=== PATIENT | male | born 1960 | race Caucasian/White ===

== ENCOUNTER 2018-11-15 18:55 | Inpatient (IN) | payer OTHER ==
[~2018-11-15] VITALS: Ht 175.3 cm; Wt 75.6 kg
--- OUTSIDE RECORDS SUMMARY | 2018-11-15 18:58 | XMS REPORT | Clinical Summary ---
Author Author [facility] Organization [place] [facility] Address Unknown Phone Unavailable Care Team Providers Care Steel Fixer Name Role Phone Marlin Harden PRODUCT PICKER PCP Allergies No Known Allergies Medications End Date Status Medication Sig Dispensed Refills Start Date Active metFORMIN (GLUCOPHAGE) Take 500 mg 0 500 mg tablet by mouth daily with breakfast. 09/11/2018 Discontinued simvastatin (ZOCOR) 40 MG Take 40 mg by 0 tablet mouth nightly. 09/11/2018 Discontinued potassium chloride Take 20 mEq 0 (K-DUR,KLOR-CON) 10 MEQ by mouth CR tablet daily. 09/11/2018 Discontinued furosemide (LASIX) 20 mg Take 40 mg by 0 tablet mouth daily. 10/11/2018 carvedilol (COREG) 6.25 Take 1 tablet 60 tablet 0 201 MG tablet (6.25 mg 9 total) by mouth 2 (two) times a day with meals for 30 days. 10/11/2018 atorvastatin (LIPITOR) 40 Take 1 tablet 30 tablet 0 201 MG tablet (40 mg total) 9 by mouth nightly for 30 days. 10/11/2018 captopril (CAPOTEN) 25 MG Take 1 tablet 60 tablet 0 tablet (25 mg total) 9 by mouth 2 (two) times a day for 30 days. 10/11/2018 hydrALAZINE (APRESOLINE) Take 1 tablet 60 tablet 0 10 MG tablet (10 mg total) 9 by mouth 2 (two) times a day for 30 days. 10/11/2018 famotidine (PEPCID) 20 MG Take 1 tablet 60 tablet 0 tablet (20 mg total) 9 by mouth 2 (two) times a day for 30 days. 10/12/2018 torsemide (DEMADEX) 20 MG Take 2 60 tablet 0 tablet tablets (40 9 mg total) by mouth daily for 30 days. 10/12/2018 aspirin (ECOTRIN) 81 MG Take 1 tablet 30 tablet 0 enteric coated tablet (81 mg total) 9 by mouth daily for 30 days. 10/11/2018 potassium chloride Take 2 60 tablet 0 (K-DUR,KLOR-CON) 10 MEQ tablets (20 9 CR tablet mEq total) by mouth daily for 30 days. 10/12/2018 spironolactone Take 1 tablet 30 tablet 0 (ALDACTONE) 25 MG tablet (25 mg total) 9 by mouth daily for 30 days. 10/11/2018 isosorbide dinitrate Take 1 tablet 60 tablet 0 (ISORDIL) 10 MG tablet (10 mg total) 9 by mouth 2 (two) times a day for 30 days. Active Problems Problem Noted Date Stage 3 chronic kidney disease 09/02/2018 ACS (acute coronary syndrome) 09/02/2018 Acute on chronic combined systolic and diastolic congestive heart failure 08/31/2018 Congestive heart failure 08/30/2018 Diabetes mellitus Shortness of breath Encounters Care Team Description Date Type Specialty Wai Hernandez MD Ischemic cardiomyopathy 10/24/2018 Hospital Procedural Cardiology Encounter Wai Hernandez MD Ischemic cardiomyopathy (Primary Dx) 10/23/2018 Transcribe Procedural Cardiology Orders Sushant Boone, PharmD 09/12/2018 Patient Quality Outreach Stu Caban MD Left heart cath w lv gram cors [[id number] (CPT)] 09/02/2018 Surgery Procedural Cardiology Leighton Duval MD Joglekar, Swati, MD Li, MD Kenyon Fofana, Cornell Paulino, Congestive heart failure, unspecified HF chronicity, unspecified heart failure type (HCC) (Primary Dx); Hypervolemia, unspecified hypervolemia type; Coronary artery disease involving [place] heart without angina pectoris, unspecified vessel or lesion type; Shortness of breath 08/30/2018 [facility] - Encounter 09/11/2018 after 11/14/2017 Social History Date Tobacco Use Types Packs/Day Years Used Current Every Day Smoker 0.5 Smokeless Tobacco: Never Used Tobacco Cessation: Ready to Quit: Yes; Counseling Given: Yes Alcohol Use Drinks/Week oz/Week Comments No Alcohol Habits Answer Date Recorded How often do you have a drink containing alcohol? Never 08/30/2018 How many drinks containing alcohol do you have on Not asked a typical day when you are drinking? How often do you have six or more drinks on one Not asked occasion? Sex Assigned at Date Recorded Not on file Industry Job Start Date Occupation Not on file Not on file Not on file Travel End Travel History Travel Start No recent travel history available. Last Filed Vital Signs Time Taken Vital Sign Reading 09/11/2018 7:46 AM CARRIAGE FEEDER Blood Pressure 114/70 09/11/2018 7:46 AM CARRIAGE FE[employer]ER Pulse 66 09/11/2018 7:46 AM CARRIAGE FE[employer] Temperature 36.1 C (96.9 F) 09/11/2018 7:46 AM [employer]RIAGE FE[employer]ER Respiratory Rate 18 09/11/2018 7:46 AM CARRIAGE FEEDER Oxygen Saturation 100% - Inhaled Oxygen - Concentration 09/10/2018 6:40 AM CARRIAGE FE[employer]ER Weight 62.7 kg (138 lb 4.8 oz) 08/31/2018 5:01 AM [employer]RIAGE FEEDER Height 175.3 cm (5' 9") 09/10/2018 6:40 AM CARRIAGE FEEDER Body Mass Index 20.42 Plan of Treatment Health Maintenance Due Date Last Done Comments DIABETIC RETINAL EYE EXAM 1960 DIABETIC FOOT EXAM 1968 COLON CANCER SCREENING 2008 SHINGLES VACCINES (#1) 2008 INFLUENZA VACCINE 03/27/2018 Implants Device Identifier Shelf Expiration Date Model / Serial / Lot Implanted Type Area Manufactur er 04/26/2020 [id number] / / [id number] Device Vasclr Clsr Baln Cath 10ml Cardiovasc N/A: N/A ACCESS Lkng Syr 5fr Bejarano Mynxgrip - ular CLOSURE [id number] [employer]plants [employer] Implanted: 09/02/2018 (Quantity not on file) Procedures Comments Procedure Name Priority Date/Time Associated Diagnosis CARDIAC MRI FUNCTION Routine 10/24/2018 Ischemic cardiomyopathy VIABILITY CHF EVALUATION 12:07 PM [employer]RIAGE FEEDER POC PANEL Routine 10/24/2018 10:19 AM CARRIAGE FE[employer]ER ESTIMATED GFR Routine 10/24/2018 10:19 AM CARRIAGE FE[employer]ER ESTIMATED GFR Routine 09/11/2018 5:43 AM [employer]RIAGE FE[employer]ER BASIC METABOLIC PANEL Routine 09/11/2018 5:43 AM [employer]AGE FE[employer]ER POC GLUCOSE Routine 09/11/2018 5:33 AM [employer]AGE [employer]ER POC GLUCOSE Routine 09/10/2018 7:53 PM [employer]AGE [employer]ER POC GLUCOSE Routine 09/10/2018 4:17 PM [employer]AGE FE[employer]ER POC GLUCOSE Routine 09/10/2018 11:16 AM [employer]AGE [employer]ER POC GLUCOSE Routine 09/10/2018 6:28 AM [employer]AGE FE[employer]ER POC GLUCOSE Routine 09/09/2018 8:06 PM [employer]AGE [employer]ER POC GLUCOSE Routine 09/09/2018 4:08 PM [employer]AGE FE[employer]ER POC GLUCOSE Routine 09/09/2018 10:58 AM CAR[employer]AGE FE[employer]ER ESTIMATED GFR Routine 09/09/2018 6:51 AM CARRIAGE FEEDER BASIC METABOLIC PANEL Routine 09/09/2018 6:51 AM CAR[employer]AGE FEEDER POC GLUCOSE Routine 09/09/2018 6:36 AM CARRIAGE FEEDER POC GLUCOSE Routine 09/08/2018 8:43 PM CARRIAGE FEEDER POC GLUCOSE Routine 09/08/2018 4:49 PM CARRIAGE FEEDER POC GLUCOSE Routine 09/08/2018 11:37 AM CARRIAGE FEEDER POC GLUCOSE Routine 09/08/2018 6:15 AM CARRIAGE FEEDER POC GLUCOSE Routine 09/07/2018 8:36 PM CARRIAGE FEEDER POC GLUCOSE Routine 09/07/2018 4:07 PM CARRIAGE FEEDER POC GLUCOSE Routine 09/07/2018 11:17 AM CARRIAGE FEEDER POC GLUCOSE Routine 09/07/2018 6:23 AM CARRIAGE FEEDER POC GLUCOSE Routine 09/06/2018 8:16 PM CARRIAGE FEEDER POC GLUCOSE Routine 09/06/2018 4:15 PM CARRIAGE FEEDER ESTIMATED GFR Routine 09/06/2018 2:02 PM [employer]RIAGE FE[employer]ER BASIC METABOLIC PANEL Routine 09/06/2018 2:02 PM CARRIAGE FEEDER POC GLUCOSE Routine 09/06/2018 11:23 AM CARRIAGE FEEDER POC GLUCOSE Routine 09/06/2018 6:42 AM CARRIAGE FEEDER XR CHEST 1 VW PORTABLE STAT 09/06/2018 1:08 AM CARRIAGE FEEDER POC GLUCOSE Routine 09/05/2018 8:41 PM CAR[employer]AGE FE[employer]ER POC GLUCOSE Routine 09/05/2018 4:36 PM CARRIAGE FEEDER POC GLUCOSE Routine 09/05/2018 11:54 AM CARRIAGE FE[employer]ER POC GLUCOSE Routine 09/05/2018 7:50 AM CARRIAGE FEEDER HC COMPLETE BLD COUNT Timed 09/05/2018 W/AUTO DIFF 7:10 AM CARRIAGE FEEDER IONIZED CALCIUM Routine 09/05/2018 7:10 AM CARRIAGE FE[employer]ER XR CHEST 1 VW PORTABLE Routine 09/05/2018 5:47 AM CARRIAGE FEEDER ESTIMATED GFR Timed 09/05/2018 4:29 AM CAR[employer]AGE FE[employer]ER PHOSPHORUS LEVEL Timed 09/05/2018 4:29 AM CARRIAGE FEEDER MAGNESIUM LEVEL Timed 09/05/2018 4:29 AM CARRIAGE FEEDER BASIC METABOLIC PANEL Timed 09/05/2018 4:29 AM CARRIAGE FEEDER POC GLUCOSE Routine 09/04/2018 9:52 PM CARRIAGE FEEDER POC GLUCOSE Routine 09/04/2018 4:02 PM CARRIAGE FEEDER SPIROMETRY Routine 09/04/2018 Coronary artery disease 3:46 PM CARRIAGE FEEDER involving [place] heart without angina pectoris, unspecified vessel or lesion type Shortness of breath US CAROTID DUPLEX STAT 09/04/2018 BILATERAL 12:20 PM CARRIAGE FEEDER POC GLUCOSE Routine 09/04/2018 12:20 PM CARRIAGE FEEDER POC GLUCOSE Routine 09/04/2018 8:10 AM CARRIAGE FEEDER XR CHEST 1 VW PORTABLE STAT 09/04/2018 8:00 AM CARRIAGE FEEDER ESTIMATED GFR Routine 09/04/2018 4:58 AM CARRIAGE FEEDER PHOSPHORUS LEVEL Routine 09/04/2018 4:58 AM CARRIAGE FEEDER MAGNESIUM LEVEL Routine 09/04/2018 4:58 AM CARRIAGE FEEDER HC COMPLETE BLD COUNT Routine 09/04/2018 W/AUTO DIFF 4:58 AM CARRIAGE FEEDER BASIC METABOLIC PANEL Routine 09/04/2018 4:58 AM CARRIAGE FEEDER IONIZED CALCIUM Routine 09/04/2018 4:58 AM CARRIAGE FEEDER POC GLUCOSE Routine 09/03/2018 9:58 PM CARRIAGE FEEDER POC GLUCOSE Routine 09/03/2018 5:00 PM [employer]RIAGE FE[employer]ER HEMOGLOBIN A1C Routine 09/03/2018 3:00 PM CARRIAGE FEEDER POC GLUCOSE Routine 09/03/2018 12:44 PM CARRIAGE FEEDER ACTIVATED CLOTTING TIME Routine 09/03/2018 12:31 PM CARRIAGE FEEDER POC GLUCOSE Routine 09/03/2018 8:25 AM CARRIAGE FEEDER ESTIMATED GFR Routine 09/03/2018 7:58 AM CARRIAGE FEEDER URINE PROTEIN/CREATININE Routine 09/03/2018 RATIO, RANDOM 7:58 AM CARRIAGE FEEDER ESTIMATED GFR Timed 09/03/2018 5:12 AM CARRIAGE FEEDER PHOSPHORUS LEVEL Timed 09/03/2018 5:12 AM CARRIAGE FEEDER MAGNESIUM LEVEL Timed 09/03/2018 5:12 AM CARRIAGE FEEDER HC COMPLETE BLD COUNT Timed 09/03/2018 W/AUTO DIFF 5:12 AM CARRIAGE FEEDER BASIC METABOLIC PANEL Timed 09/03/2018 5:12 AM CARRIAGE FEEDER MAGNESIUM LEVEL Routine 09/03/2018 5:12 AM CARRIAGE FEEDER URIC ACID LEVEL Routine 09/03/2018 5:12 AM CARRIAGE FEEDER VITAMIN D 25 HYDROXY Routine 09/03/2018 LEVEL 5:12 AM CARRIAGE FEEDER PARATHYROID HORMONE Routine 09/03/2018 5:12 AM CARRIAGE FEEDER IONIZED CALCIUM Routine 09/03/2018 5:12 AM CARRIAGE FEEDER B NATRIURETIC PEPTIDE Routine 09/03/2018 5:12 AM CARRIAGE FEEDER ECG 12-LEAD STAT 09/03/2018 1:13 AM CARRIAGE FEEDER ESTIMATED GFR STAT 09/03/2018 12:52 AM CARRIAGE FEEDER PHOSPHORUS LEVEL STAT 09/03/2018 12:52 AM CARRIAGE FEEDER MAGNESIUM LEVEL STAT 09/03/2018 12:52 AM CARRIAGE FEEDER BASIC METABOLIC PANEL STAT 09/03/2018 12:52 AM CARRIAGE FEEDER US RENAL Routine 09/02/2018 10:53 PM CARRIAGE FEEDER URINALYSIS SCREEN AND Routine 09/02/2018 MICROSCOPY, WITH REFLEX 10:00 PM CARRIAGE FEEDER TO CULTURE URINE CULTURE Routine 09/02/2018 10:00 PM CARRIAGE FEEDER POC GLUCOSE Routine 09/02/2018 8:38 PM CARRIAGE FEEDER ESTIMATED GFR STAT 09/02/2018 6:10 PM CARRIAGE FEEDER BASIC METABOLIC PANEL STAT 09/02/2018 6:10 PM CARRIAGE FEEDER POC GLUCOSE Routine 09/02/2018 5:21 PM CARRIAGE FEEDER POC GLUCOSE Routine 09/02/2018 2:29 PM CARRIAGE FEEDER CV LEFT HEART CATH LV Routine 09/02/2018 GRAM WITH CORS 10:18 AM CARRIAGE FEEDER POC GLUCOSE Routine 09/02/2018 6:19 AM CARRIAGE FEEDER POC GLUCOSE Routine 09/01/2018 8:54 PM CARRIAGE FEEDER POC GLUCOSE Routine 09/01/2018 4:30 PM CARRIAGE FEEDER POC GLUCOSE Routine 09/01/2018 12:03 PM CARRIAGE FEEDER ESTIMATED GFR Routine 09/01/2018 6:20 AM CARRIAGE FEEDER MAGNESIUM LEVEL Routine 09/01/2018 6:20 AM CARRIAGE FEEDER BASIC METABOLIC PANEL Routine 09/01/2018 6:20 AM CARRIAGE FEEDER POC GLUCOSE Routine 09/01/2018 6:13 AM CARRIAGE FEEDER POC GLUCOSE Routine 08/31/2018 8:52 PM CARRIAGE FEEDER POC GLUCOSE Routine 08/31/2018 3:50 PM CARRIAGE FEEDER ECHOCARDIOGRAM 2D Routine 08/31/2018 COMPLETE W MMODE SPECTRAL 10:52 AM CARRIAGE FEEDER COLOR DOPPLER (36669) POC GLUCOSE Routine 08/31/2018 10:52 AM CARRIAGE FEEDER MAGNESIUM LEVEL Routine 08/31/2018 10:16 AM CARRIAGE FEEDER TROPONIN Timed 08/31/2018 10:16 AM CARRIAGE FEEDER ECG 12-LEAD Routine 08/31/2018 8:30 AM CARRIAGE FEEDER POC GLUCOSE Routine 08/31/2018 6:03 AM CARRIAGE FEEDER TROPONIN Routine 08/31/2018 5:40 AM CARRIAGE FEEDER ESTIMATED GFR Routine 08/31/2018 5:40 AM CARRIAGE FEEDER LIPID PANEL Routine 08/31/2018 5:40 AM CARRIAGE FEEDER BASIC METABOLIC PANEL Routine 08/31/2018 5:40 AM CARRIAGE FEEDER PROTHROMBIN TIME WITH INR Routine 08/31/2018 5:40 AM CARRIAGE FEEDER HC COMPLETE BLD COUNT Routine 08/31/2018 W/AUTO DIFF 5:40 AM CARRIAGE FEEDER ECG 12-LEAD Routine 08/31/2018 5:02 AM CARRIAGE FEEDER XR CHEST 1 VW STAT 08/30/2018 10:45 PM CARRIAGE FEEDER TROPONIN Timed 08/30/2018 10:38 PM CARRIAGE FEEDER ECG ED PRELIMINARY Routine 08/30/2018 INTERPRETATION 9:04 PM CARRIAGE FEEDER ESTIMATED GFR STAT 08/30/2018 7:35 PM CARRIAGE FEEDER B NATRIURETIC PEPTIDE STAT 08/30/2018 7:35 PM CARRIAGE FEEDER TROPONIN STAT 08/30/2018 7:35 PM CARRIAGE FEEDER COMPREHENSIVE METABOLIC STAT 08/30/2018 PANEL 7:35 PM CARRIAGE FEEDER HC COMPLETE BLD COUNT STAT 08/30/2018 W/AUTO DIFF 7:35 PM CARRIAGE FEEDER ECG 12-LEAD STAT 08/30/2018 6:35 PM CARRIAGE FEEDER after 11/14/2017 Results * Cardiac mri function viability chf evaluation (10/24/2018 12:07 PM CARRIAGE FEEDER) Narrative Performed At [facility] CMR Report Name:DHRUV ENCINAS :1960 Scan Date: 2018-10-24 10:34:19 Electronically signed by Randal Goodman M.D. 15:27:53 VITALS HEIGHT/WEIGHT --------- HEIGHT:69.00 in 175.26 cm WEIGHT:180.01 lbs 81.65 kgs BSA/BP --------- BSA:1.98 m^2 HEART RATE/RHYTHM --------- HEART RHYTHM:Sinus Rhythm FINAL IMPRESSION: A. ISCHEMIC DILATED CARDIOMYOPATHY WITH SEVERE BIVENTRICULAR SYSTOLIC DYSFUNCTION (LVEF 25%, RVEF 23%). B. ISCHEMIC SUBENDOCARDIAL SCAR (<50% OF WALL THICKNESS)PATTERN PRIMARILY IN THE RCA AND LAD TERRITORIES. SCAR BURDEN ESTIMATED 14% OF LV MASS. ALL EPICARDIAL CORONARY TERRITORIES ARE CONSIDERED PREDOMINANTLY VIABLE. C. SMALL PERICARDIAL EFFUSION WITHOUT EVIDENCE OF INCREASED INTRAPERICARDIAL PRESSURE. D, MILD TO MODERATE MITRAL REGURGITATION AND MILD TRICUSPID REGURGITATION. SUMMARY LEFT VENTRICLE: Quantitative LVEF 25%. LV wall thickness is normal. There is focal wall thinning of the septal, inferior, and inferolateral segments. LV cavity is mildly enlarged. LV systolic function is regionally impaired. There is no LV mass/thrombus. VIABILITY: LV infarct/scar size is 14%.There is subendocardial scar (<50% of wall thickness) in the inferior, septal, and inferolateral segments consistent with myocardial infarct in the LAD and RCA territories. All epicardial coronary artery territories are considered predominantly viable. RIGHT VENTRICLE: Quantitative RVEF 23%. RV wall thickness is normal. RV is mildly enlarged. RV systolic function is severely decreased globally. There is no RV mass/thrombus. LV/RV SEPTUM: The ventricular septum is intact. LEFT ATRIUM: LA is severely enlarged. There is no LA mass/thrombus. RIGHT ATRIUM: RA is severely enlarged. There is no RA mass/thrombus. PERICARDIUM: Pericardium is normal. There is a small pericardial effusion. There are no signs of increased intrapericardial pressures. PLEURAL EFFUSION: There is a small right pleural effusion. There is a small left pleural effusion. AORTIC VALVE: Aortic valve is trileaflet. There is no aortic regurgitation. There is no aortic stenosis. MITRAL VALVE: Mitral valve leaflets are normal. There is mild-moderate mitral regurgitation. Mitral regurgitant volume 25ml. Mitral regurgitant fraction 34%. There is no mitral stenosis. TRICUSPID VALVE: The tricuspid valve annulus measures 4.5cm. Tricuspid valve leaflets are normal. There is mild tricuspid regurgitation. Tricuspid regurgitant volume 14ml. Tricuspid regurgitant fraction 23%. There is no tricuspid stenosis. PULMONIC VALVE: Pulmonic valve leaflets are normal. AORTIC ROOT: The aortic root is normal. CHEST: The thoracic aorta is normal in caliber with no evidence of stenosis, aneurysm, coarctation, or dissection. The main PA is dilated (3.2 cm). ABDOMEN: Early bifurcation of the left renal artery. 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 VENOUS: Normal pulmonary venous anatomy and drainage into the left atrium. CORE EXAM MEASUREMENTS --------- VOLUMETRIC ANALYSIS . . || | LV | Reference| RV | Reference| +------+-------+------+ +------+ + | EDV| ml|294 |(119-188) |266 |(111-200) | | ESV| ml|221 |(28-71) |206 |(22-79) | | CO | L/min | 4.09 || 3.36 || | MASS | g |140 |(113-178) ||| | SV | ml| 73 |(79-127)| 60 |(73-137)| | EF | % | 25 |(58-76) | 23 |(55-81) | '------+-------+------+ +------+ ' CARDIAC OUTPUT HR:56 bpm LV DIMENSIONS WALL THICKNESS - ANTEROSEPTAL:0.7 cm WALL THICKNESS - INFEROLATERAL:0.5 cm LV GALLITO:6.4 cm LV ESD:6.1 cm LA DIMENSIONS (LV SYSTOLE) DIAMETER:4.9 cm AREA - 2 CHAMBER:34 cm^2 LENGTH - 2 CHAMBER:6.0 cm AREA - 4 CHAMBER:36 cm^2 LENGTH - 4 CHAMBER:6.8 cm VOLUME:173 ml AORTIC ROOT DIMENSIONS ANNULUS:2.9 cm SINUS OF VALSALVA:3.4 cm SINOTUBULAR JUNCTION:2.9 cm EXTRACELLULAR VOLUME MEASUREMENT HEMATOCRIT:40 % HEMATOCRIT DATE:2018-10-24 00:00:00 17 SEGMENT --------- . . | Segments | Wall Motion | Hyperenhancement | Stress Perfusion | Interpretation | + + + + +---- + | Base Anterior| Mild/Mod Hypo | None ||| | Base Anteroseptal| Severe Hypo | None ||| | Base Inferoseptal| Severe Hypo | None ||| | Base Inferior| Akinetic| 26-50% || Sub-Endo SC| | Base Inferolateral | Akinetic| 1-25%|| Sub-Endo SC| | Base Anterolateral | Mild/Mod Hypo | None ||| | Mid Anterior | Mild/Mod Hypo | None ||| | Mid Anteroseptal | Akinetic| 1-25%|| Sub-Endo SC| | Mid Inferoseptal | Akinetic| 1-25%|| Sub-Endo SC| | Mid Inferior | Akinetic| 26-50% || Sub-Endo SC| | Mid Inferolateral| Severe Hypo | 26-50% || Sub-Endo SC| | Mid Anterolateral| Mild/Mod Hypo | None ||| | Apical Anterior| Mild/Mod Hypo | None ||| | Apical Septal| Akinetic| 26-50% || Sub-Endo SC| | Apical Inferior| Akinetic| 1-25%|| Transmural SC| | Apical Lateral | Mild/Mod Hypo | 1-25%|| Sub-Endo SC| | Tatum | Akinetic| 1-25%|| Sub-Endo SC| + + + + +---- + | RV Segments| Wall Motion | Hyperenhancement | Stress Perfusion | Interpretation | + + + + +---- + | RV Basal Anterior| Severe Hypo | None ||| | RV Basal Inferior| Severe Hypo | None ||| | RV Mid | Severe Hypo | None ||| | RV Apical| Severe Hypo | None ||| ' + + + +---- ' FINDINGS INFARCT/SCAR SIZE:14 % SCAN INFO GENERAL --------- CONTRAST AGENT TYPE:[employer] LOT NUMBER:[id number] EXPIRATION DATE:2019-02-23 00:00:00 VOLUME ADMINISTERED:25 ml DOSAGE FOR 0.5M:0.15 mmol/kg SERUM CREATININE:1.4 sCr GFR:54.94 ml/min/1.73m^2 CREATININE DATE:2018-10-24 00:00:00 SEDATION SEDATION USED?:No PULSE SEQUENCES Single-Shot SSFP, IR GRE - Segmented, IR SSFP - Single Shot, Single Shot BB KATHIE, SSFP Cine, Phase Contrast Velocity Mapping, 3D MRA w and w/o contrast SETUP TYPE:Clinical INPATIENT:No LOCATION:[facility] INCOMPLETE SCAN:No REASON(S) FOR SCAN:Cardiomyopathy REFERRING PHYSICIAN:Wai Hernandez MD ATTENDING PHYSICIAN:Wai Hernandez MD TECHNICIANS:1) Elder Duarte RT 2) Delphine BARAJAS Patient Account [id number] CPT Codes 32792, 72440, 01902 HCPCS Codes A9579 ICD10 Codes I25.5 ADDITIONAL NOTES MR/TR/?AR SEEN LVOT 42 AOFF 48 PAFF 46 MR=73 - 48=25 MRF=25/73=34% TR=60 - 46=14 TRF=14/60=23% Report generated by [employer], a product of [employer] Procedure Note Interface, Radiology Results In - 10/24/2018 3:28 PM CARRIAGE FEEDER [place] [facility] CMR Report Name: DHRUV ENCINAS : 1960 Scan Date: 2018-10-24 10:34:19 Electronically signed by Randal Goodman M.D. 15:27:53 VITALS HEIGHT/WEIGHT HEIGHT: 69.00 in 175.26 cm WEIGHT: 180.01 lbs 81.65 kgs BSA/BP BSA: 1.98 m^2 HEART RATE/RHYTHM HEART RHYTHM: Sinus Rhythm FINAL IMPRESSION: A. ISCHEMIC DILATED CARDIOMYOPATHY WITH SEVERE BIVENTRICULAR SYSTOLIC DYSFUNCTION (LVEF 25%, RVEF 23%). B. ISCHEMIC SUBENDOCARDIAL SCAR (<50% OF WALL THICKNESS) PATTERN PRIMARILY IN THE RCA AND LAD TERRITORIES. SCAR BURDEN ESTIMATED 14% OF LV MASS. ALL EPICARDIAL CORONARY TERRITORIES ARE CONSIDERED PREDOMINANTLY VIABLE. C. SMALL PERICARDIAL EFFUSION WITHOUT EVIDENCE OF INCREASED INTRAPERICARDIAL PRESSURE. D, MILD TO MODERATE MITRAL REGURGITATION AND MILD TRICUSPID REGURGITATION. SUMMARY LEFT VENTRICLE: Quantitative LVEF 25%. LV wall thickness is normal. There is focal wall thinning of the septal, inferior, and inferolateral segments. LV cavity is mildly enlarged. LV systolic function is regionally impaired. There is no LV mass/thrombus. VIABILITY: LV infarct/scar size is 14%.There is subendocardial scar (<50% of wall thickness) in the inferior, septal, and inferolateral segments consistent with myocardial infarct in the LAD and RCA territories. All epicardial coronary artery territories are considered predominantly viable. RIGHT VENTRICLE: Quantitative RVEF 23%. RV wall thickness is normal. RV is mildly enlarged. RV systolic function is severely decreased globally. There is no RV mass/thrombus. LV/RV SEPTUM: The ventricular septum is intact. LEFT ATRIUM: LA is severely enlarged. There is no LA mass/thrombus. RIGHT ATRIUM: RA is severely enlarged. There is no RA mass/thrombus. PERICARDIUM: Pericardium is normal. There is a small pericardial effusion. There are no signs of increased intrapericardial pressures. PLEURAL EFFUSION: There is a small right pleural effusion. There is a small left pleural effusion. AORTIC VALVE: Aortic valve is trileaflet. There is no aortic regurgitation. There is no aortic stenosis. MITRAL VALVE: Mitral valve leaflets are normal. There is mild-moderate mitral regurgitation. Mitral regurgitant volume 25ml. Mitral regurgitant fraction 34%. There is no mitral stenosis. TRICUSPID VALVE: The tricuspid valve annulus measures 4.5cm. Tricuspid valve leaflets are normal. There is mild tricuspid regurgitation. Tricuspid regurgitant volume 14ml. Tricuspid regurgitant fraction 23%. There is no tricuspid stenosis. PULMONIC VALVE: Pulmonic valve leaflets are normal. AORTIC ROOT: The aortic root is normal. CHEST: The thoracic aorta is normal in caliber with no evidence of stenosis, aneurysm, coarctation, or dissection. The main PA is dilated (3.2 cm). ABDOMEN: Early bifurcation of the left renal artery. 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 VENOUS: Normal pulmonary venous anatomy and drainage into the left atrium. CORE EXAM MEASUREMENTS VOLUMETRIC ANALYSIS . . | | | LV | Reference | RV | Reference | +------+-------+------+ +------+ + | EDV | ml | 294 | (119-188) | 266 | (111-200) | | ESV | ml | 221 | (28-71) | 206 | (22-79) | | CO | L/min | 4.09 | | 3.36 | | | MASS | g | 140 | (113-178) | | | | SV | ml | 73 | (79-127) | 60 | (73-137) | | EF | % | 25 | (58-76) | 23 | (55-81) | '------+-------+------+ +------+ ' CARDIAC OUTPUT HR: 56 bpm LV DIMENSIONS WALL THICKNESS - ANTEROSEPTAL: 0.7 cm WALL THICKNESS - INFEROLATERAL: 0.5 cm LV GALLITO: 6.4 cm LV ESD: 6.1 cm LA DIMENSIONS (LV SYSTOLE) DIAMETER: 4.9 cm AREA - 2 CHAMBER: 34 cm^2 LENGTH - 2 CHAMBER: 6.0 cm AREA - 4 CHAMBER: 36 cm^2 LENGTH - 4 CHAMBER: 6.8 cm VOLUME: 173 ml AORTIC ROOT DIMENSIONS ANNULUS: 2.9 cm SINUS OF VALSALVA: 3.4 cm SINOTUBULAR JUNCTION: 2.9 cm EXTRACELLULAR VOLUME MEASUREMENT HEMATOCRIT: 40 % HEMATOCRIT DATE: 2018-10-24 00:00:00 17 SEGMENT . . | Segments | Wall Motion | Hyperenhancement | Stress Perfusion | Interpretation | + + + + + + | Base Anterior | Mild/Mod Hypo | None | | | | Base Anteroseptal | Severe Hypo | None | | | | Base Inferoseptal | Severe Hypo | None | | | | Base Inferior | Akinetic | 26-50% | | Sub-Endo SC | | Base Inferolateral | Akinetic | 1-25% | | Sub-Endo SC | | Base Anterolateral | Mild/Mod Hypo | None | | | | Mid Anterior | Mild/Mod Hypo | None | | | | Mid Anteroseptal | Akinetic | 1-25% | | Sub-Endo SC | | Mid Inferoseptal | Akinetic | 1-25% | | Sub-Endo SC | | Mid Inferior | Akinetic | 26-50% | | Sub-Endo SC | | Mid Inferolateral | Severe Hypo | 26-50% | | Sub-Endo SC | | Mid Anterolateral | Mild/Mod Hypo | None | | | | Apical Anterior | Mild/Mod Hypo | None | | | | Apical Septal | Akinetic | 26-50% | | Sub-Endo SC | | Apical Inferior | Akinetic | 1-25% | | Transmural SC | | Apical Lateral | Mild/Mod Hypo | 1-25% | | Sub-Endo SC | | Tatum | Akinetic | 1-25% | | Sub-Endo SC | + + + + + + | RV Segments | Wall Motion | Hyperenhancement | Stress Perfusion | Interpretation | + + + + + + | RV Basal Anterior | Severe Hypo | None | | | | RV Basal Inferior | Severe Hypo | None | | | | RV Mid | Severe Hypo | None | | | | RV Apical | Severe Hypo | None | | | ' + + + + ' FINDINGS INFARCT/SCAR SIZE: 14 % SCAN INFO GENERAL CONTRAST AGENT TYPE: [employer] LOT NUMBER: [id number] EXPIRATION DATE: 2019-02-23 00:00:00 VOLUME ADMINISTERED: 25 ml DOSAGE FOR 0.5M: 0.15 mmol/kg SERUM CREATININE: 1.4 sCr GFR: 54.94 ml/min/1.73m^2 CREATININE DATE: 2018-10-24 00:00:00 SEDATION SEDATION USED?: No PULSE SEQUENCES Single-Shot SSFP, IR GRE - Segmented, IR SSFP - Single Shot, Single Shot BB KATHIE, SSFP Cine, Phase Contrast Velocity Mapping, 3D MRA w and w/o contrast SETUP TYPE: Clinical INPATIENT: No LOCATION: [facility] INCOMPLETE SCAN: No REASON(S) FOR SCAN: Cardiomyopathy REFERRING PHYSICIAN: Wai Hernandez MD ATTENDING PHYSICIAN: Wai Hernandez MD TECHNICIANS: 1) Elder Duarte RT 2) Delphine BARAJAS Patient Account [id number] CPT Codes 22144, 96733, 35343 [facility] C[facility] A9579 ICD10 Codes I25.5 ADDITIONAL NOTES MR/TR/?AR SEEN LVOT 42 AOFF 48 PAFF 46 MR=73 - 48=25 MRF=73=34% TR=60 - 46=14 TRF=1460=23% Report generated by Pre[employer], a product of [employer] Performing Organization Address [facility] Phone Number [facility] [address] [place] [address] * Estimated GFR (10/24/2018 10:19 AM CARRIAGE FEEDER) Only the most recent of 13 results within the time period is included. Estimated GFR 54 (A) mL/min/1.73 m2 [facility] Comment: HOSPITAL CatergoryUnitsInte rpretation G1 >=90 Normal or high G2 60-89Mildly decreased [id number] Mildly to moderately decreased [id number] Moderately to severely decreased G4 15-29Severely decreased G5 <15Kidney failure The eGFR was calculated using the Chronic Kidney Disease Epidemiology Collaboration (CKD-EPI) equation. Interpretation is based on recommendations of the National Kidney Foundation-Kidney Disease Outcomes Quality Initiative (NKF-KDOQI) published in 2014. Specimen Blood Performing Organization Address [facility] Phone Number [facility] DEPARTMENT OF [address] [place] [address] PATHOLOGY AND GENOMIC MEDICINE NOAH MCCOYIST [address] * POC panel (10/24/2018 10:19 AM CARRIAGE FEEDER) POC creatinine 1.4 (H) 0.7 - 1.2 mg/dl [facility] [place] POC hematocrit 40 (L) 41 - 51 % [facility] Comment: HOSPITAL Meter ID: [id number] Customer Support Advisor: David Doyle Performing Organization Address City/State/Zipcode Phone Number [facility] DEPARTMENT OF [address] [place] [address] PATHOLOGY AND GENOMIC MEDICINE [address] * Basic metabolic panel (09/11/2018 5:43 AM CARRIAGE FEEDER) Only the most recent of 10 results within the time period is included. Sodium 138 135 - 150 mEq/L [facility] Potassium 4.4 3.5 - 5.0 mEq/L [facility] Chloride 94 (L) 98 - 112 mEq/L [facility] CO2 28 24 - 31 mmol/L [facility] Anion gap 16@ANIO (H) 7 - 15 mEq/L [facility] BUN 55 (H) 7 - 18 mg/dL [facility] Creatinine 1.80 (H) 0.70 - 1.20 mg/dL [facility] Glucose 114 (H) 65 - 100 mg/dL [facility] Calcium 10.1 8.8 - 10.2 mg/dL [facility] Specimen Plasma specimen Performing Organization Address [facility] Phone Number [facility] DEPARTMENT [address] [place] [phone] PATHOLOGY AND GENOMIC MEDICINE [facility] [address] * POC glucose (09/11/2018 5:33 AM CARRIAGE FEEDER) Only the most recent of 45 results within the time period is included. POC glucose 110 (H) 65 - 100 mg/dL [facility] Comment: [facility] Meter ID: [id number] Customer Support Advisor: Terri Rapp Performing Organization Address City/[facility] Phone Number [facility] DEPARTMENT [address] [place] [address] PATHOLOGY AND GENOMIC MEDICINE [facility] [address] [place], [place] [id number] [place] [address] * XR Chest 1 Vw Portable (09/06/2018 1:08 AM CARRIAGE FEEDER) Only the most recent of 3 results within the time period is included. Narrative Performed At EXAMINATION:XR CHEST 1 VW PORTABLE [facility] CLINICAL HISTORY:ICU ptstable with no clinical status changes COMPARISON:09/05/2018 IMPRESSION: Mild prominence of interstitial lung markings, suggestive of mild vascular congestion. No consolidations, effusions, or pneumothorax. Cardiomediastinal silhouette is within normal limits. No acute osseous abnormalities. Mild degenerative change of thoracic spine. [id number] Procedure Note Hm Interface, Radiology Results Incoming - 09/06/2018 1:23 AM CARRIAGE FEEDER EXAMINATION: XR CHEST 1 VW PORTABLE CLINICAL HISTORY: ICU pt stable with no clinical status changes COMPARISON: 09/05/2018 IMPRESSION: Mild prominence of interstitial lung markings, suggestive of mild vascular congestion. No consolidations, effusions, or pneumothorax. Cardiomediastinal silhouette is within normal limits. No acute osseous abnormalities. Mild degenerative change of thoracic spine. [facility]-[id number] Performing Organization Address City/State/Zipcode Phone Number [facility] [address] [place] [address] * CBC with platelet and differential (09/05/2018 7:10 AM CARRIAGE FEEDER) Only the most recent of 5 results within the time period is included. WBC 10.1 4.2 - 11.0 k/uL [facility] RBC 5.60 4.04 - 5.86 m/uL [facility] HGB 16.1 13.0 - 17.3 g/dL [facility] HCT 48.8 (H) 34.0 - 45.0 % [facility] MCV 87.1 80.0 - 98.0 fL [facility] MCH 28.8 27.0 - 34.0 pg [facility] MCHC 33.0 31.5 - 36.5 g/dL [facility] RDW - SD 49.1 37.0 - 51.0 fL [facility] MPV 11.2 (H) 7.4 - 10.4 fL [facility] Platelet count 272 150 - 400 k/uL [facility] Nucleated RBC 0.00 /100 WBC [facility] Neutrophils 66.2 (H) 36.0 - 66.0 % [facility] Lymphocytes 22.2 (L) 24.0 - 44.0 % [facility] Monocytes 9.0 (H) 0.0 - 6.0 % [facility] Eosinophils 1.5 0.0 - 6.0 % [facility] Basophils 0.7 0.0 - 1.2 % [facility] Immature granulocytes 0.4 0.0 - 1.0 % [facility] Specimen Blood Performing Organization Address City/[facility] [place] [address] PATHOLOGY AND [facility] MEDICINE [address] * Ionized calcium (09/05/2018 7:10 AM CARRIAGE FEEDER) Only the most recent of 3 results within the time period is included. pH 7.46 [facility] Ionized calcium 1.04 (L) 1.11 - 1.32 mmol/L [facility] Specimen Plasma specimen Performing Organization Address [facility] [place] [address] PATHOLOGY AND [facility] MEDICINE [address] * Phosphorus level (09/05/2018 4:29 AM CARRIAGE FEEDER) Only the most recent of 4 results within the time period is included. Phosphorus 5.4 (H) 2.4 - 4.5 mg/dL [facility] Specimen Plasma specimen Performing Organization Address City/[facility] [place] [address] PATHOLOGY AND GENOMIC MEDICINE [address] * Magnesium level (09/05/2018 4:29 AM CARRIAGE FEEDER) Only the most recent of 7 results within the time period is included. Magnesium 1.90 1.60 - 2.40 mg/dL [facility] Specimen Plasma specimen Performing Organization Address City/[facility]/Zipcode Phone Number [facility] DEPARTMENT OF [address] [place] [address] PATHOLOGY AND GENOMIC MEDICINE [place] [id number] [place], [place] [phone] [place] [address] * Spirometry (09/04/2018 3:46 PM CARRIAGE FEEDER) FEV1 Pre 3.12 L [facility] FEV1/FVC % Pre 83.25 % [facility] MVV Pre 112.91 L/min [facility] FVC Pre 3.75 L [facility] PEF Pre 6.85 L/s [facility] FEF 25-75% Pre 3.23 L/s [facility] FEV1 Predicted 3.61 [facility] FEV1 LLN 2.82 [facility] FEV1 % Pre of Predicted 86.5 % [facility] FVC Predicted 4.77 [facility] FVC LLN 3.84 [facility] FVC % Pre of Predicted 78.6 % [facility] FEV1/FVC % Predicted 76 [facility] FEV1/FVC % LLN 66 [facility] FEV1/FVC % Pre of 110.0 % [facility] Predicted FEF 25-75% Predicted 2.97 [facility] FEF 25-75% LLN 1.38 [facility] FEF 25-75% % Pre of 108.7 % [facility] Predicted PEF Predicted 9.22 [facility] PEF LLN 6.91 [facility] PEF % Pre of Predicted 74.3 % [facility] MIP Predicted 87.80 [facility] MIP LLN 35.57 [facility] MEP Predicted 135.52 [facility] MEP LLN 81.55 [facility] MVV Predicted 137 [facility] MVV LLN 116 [facility] MVV % Pre of Predicted 82.6 % [facility] Narrative Performed At Performing Organization Address City/[facility]/Zipcode Phone Number [facility] [address] [place] [address] * Us carotid duplex (09/04/2018 12:20 PM CARRIAGE FEEDER) Narrative Performed At Examination: US CAROTID DUPLEX BILATERAL [facility] CLINICAL HISTORY: pre op TECHNIQUE: Examination includes full duplex Doppler scan (real-time B mode grayscale, Doppler spectral analysis, Doppler color flow imaging) of the common carotid, internal carotid, external carotid, and vertebral arteries. Velocity parameters are based upon studies using distal internal carotid artery diameter as a denominator for stenosis calculation. COMPARISON:None. FINDINGS: Right side: The right common carotid artery has plaque formation distally. Plaque formation seen within the right carotid bulb. Plaque formation seen within the proximal right internal carotid artery. . There is antegrade flow in the right vertebral artery. Left side: There is plaque formation seen within the left carotid bulb and proximal left internal carotid artery.. There is antegrade flow in the left vertebral artery. Peak systolic velocities are as follows (cm/s) : Right CCA is 53.3, right ICA is 65.1 hemorrhage 0.2. Left CCA is 74.5, left ICA is 43.5, ratio 0.6. IMPRESSION: 1. There is no evidence of any hemodynamically significant stenosis. 2. There is plaque formation seen within the right common carotid artery, carotid bulbs bilaterally and proximal internal carotid arteries bilaterally. [id number] Procedure Note Interface, Radiology Results Incoming - 09/04/2018 3:29 PM CARRIAGE FEEDER Examination: US CAROTID DUPLEX BILATERAL CLINICAL HISTORY: pre op TECHNIQUE: Examination includes full duplex Doppler scan (real-time B mode grayscale, Doppler spectral analysis, Doppler color flow imaging) of the common carotid, internal carotid, external carotid, and vertebral arteries. Velocity parameters are based upon studies using distal internal carotid artery diameter as a denominator for stenosis calculation. COMPARISON:None. FINDINGS: Right side: The right common carotid artery has plaque formation distally. Plaque formation seen within the right carotid bulb. Plaque formation seen within the proximal right internal carotid artery. . There is antegrade flow in the right vertebral artery. Left side: There is plaque formation seen within the left carotid bulb and proximal left internal carotid artery.. There is antegrade flow in the left vertebral artery. Peak systolic velocities are as follows (cm/s) : Right CCA is 53.3, right ICA is 65.1 hemorrhage 0.2. Left CCA is 74.5, left ICA is 43.5, ratio 0.6. IMPRESSION: 1. There is no evidence of any hemodynamically significant stenosis. 2. There is plaque formation seen within the right common carotid artery, carotid bulbs bilaterally and proximal internal carotid arteries bilaterally. [id number] Performing Organization Address City/[facility]/Zipcode Phone Number [facility] [address] [place] [address] * Hemoglobin A1c (09/03/2018 3:00 PM CARRIAGE FEEDER) Hemoglobin A1C 8.0 (H) 4.0 - 6.0 % NOAH ALMANZAR Comment: [facility] Less than 6% - Goal of therapy for Type II Diabetes Less than 7%-Goal of therapy for Type I Diabetes Less than 8%-Accepta ble control for Type I or Type II Diabetes Greater than 8%-Unacceptabl e control; action indicated. (ADA94) Specimen Blood Performing Organization Address [facility] [place] [address] PATHOLOGY AND [facility] MEDICINE [address] * Activated clotting time (09/03/2018 12:31 PM CARRIAGE FEEDER) Activated clotting time 142.0 (H) 74.0 - 125.0 sec [facility] Comment: [facility] Meter ID: [id number] Customer Support Advisor: Sanjana Dillard Performing Organization Address [facility] [place] [address] PATHOLOGY AND GENOMIC MEDICINE [address] * Urine protein/creatinine ratio, random (09/03/2018 7:58 AM CARRIAGE FEEDER) Protein, urine random 30 mg/dL [facility] Protein 6.5 6.3 - 8.3 g/dL [facility] Protein clearance, urine 4.62 [facility] Creatinine, urine, random 11 mg/dL [facility] Creatinine 1.60 (H) 0.70 - 1.20 mg/dL [facility] Urine creatinine ratio 6.88 [facility] Prot/creat ratio, urine 67.15 [facility] Specimen Urine Performing Organization Address City/[facility]/Zipcode Phone Number [facility] DEPARTMENT OF [address] [place] [address] PATHOLOGY AND GENOMIC MEDICINE [facility] [address] * Vitamin D 25 hydroxy level (09/03/2018 5:12 AM CARRIAGE FEEDER) Vitamin D, 25-hydroxy 10.3 (L) 30.0 - 150.0 ng/mL [facility] Comment: HOSPITAL This assay reports the sum of 25-hydroxy vitamin D3 and 25-hydroxy vitamin D2. Reference range: 0-17 years: Deficiency: less than 20ng/mL Optimum level: greater than or equal to 20 ng/mL. 18 years and older: Deficiency: less than 20ng/mL Insufficiency: 20-29 ng/mL Optimum Level: 30-80 ng/mL The assay reportable range is 3.4155.9 ng/mL. Levels higher than 150 ng/mL may be associated with toxicity. If toxicity is clinically suspected and the reported result is >155.9 ng/mL,contact lab for alternative methods to obtain a definitivelevel. If separate quantitation of 25-hydroxy vitamin D3 and 25-hydroxy vitamin D2 is needed, please contact lab for alternative methods. Specimen Blood Performing Organization Address [facility] Phone Number [facility] DEPARTMENT OF [address] [place] [address] PATHOLOGY AND [facility] MEDICINE [address] * Uric acid level (09/03/2018 5:12 AM CARRIAGE FEEDER) Uric acid 10.1 (H) 3.4 - 7.0 mg/dL [facility] Specimen Plasma specimen Performing Organization Address City/State/Zipcode Phone Number [facility] DEPARTMENT OF [address] [place] [phone] PATHOLOGY AND GENOMIC MEDICINE [facility] [address] * Parathyroid hormone (09/03/2018 5:12 AM CARRIAGE FEEDER) PTH 103 (H) 15 - 65 pg/mL [facility] [place] Specimen Blood Performing Organization Address City/[facility]/Zipcode Phone Number [facility] DEPARTMENT OF [address] [place] [address] PATHOLOGY AND GENOMIC MEDICINE [facility] [address] * B natriuretic peptide (09/03/2018 5:12 AM CARRIAGE FEEDER) Only the most recent of 2 results within the time period is included. BNP 4,750 (H) 0 - 100 pg/mL [facility] Specimen Blood Performing Organization Address City/[facility]/Zipcode Phone Number [facility] DEPARTMENT OF [address] [place] [address] PATHOLOGY AND GENOMIC MEDICINE [facility] [address] * ECG 12 lead (09/03/2018 1:13 AM CARRIAGE FEEDER) Only the most recent of 4 results within the time period is included. Ventricular rate 69 [facility] Atrial rate 69 [facility] W[place] interval 162 [facility] QRSD interval 120 [facility] QT interval 470 [facility] QTC interval 503 [facility] P axis 1 67 [facility] QRS axis 1 -74 [facility] T wave axis 96 [facility] EKG impression Normal sinus rhythm-Left axis [facility] MUSE deviation-Incomplete left bundle branch block-T wave abnormality, consider lateral ischemia-Abnormal ECG-In automated comparison with ECG of 31-AUG-2018 08:30,-premature ventricular complexes are no longer present-QRS axis shifted left-Nonspecific T wave abnormality no longer evident in Inferior leads-T wave inversion more evident in Lateral leads- Narrative Performed At Performing Organization Address City/[facility] Phone Number [facility] MUSE [address] [place] [address] * US Renal (09/02/2018 10:53 PM CARRIAGE FEEDER) Narrative Performed At EXAMINATION:US RENAL [facility] CLINICAL HISTORY:Renal failurechronic (kidney disease) COMPARISON:None. FINDINGS: The kidneys are normal in size and echogenicity. There is no evidence of renal mass, calculi, or hydronephrosis. Renal cortical thickness on each side is normal and symmetrical. No significant increase in cortical echogenicity noted. The right kidney zgfdywnj86.86 cmX5.82 cmX6.23 cm. The left kidney jrdvmadg21.70 cmX5.85 cm X 5.53 cm. Ureter bladder is distended (calculated volume is 900 cc). The patient denied the or just urinate at this time. IMPRESSION: Bladder distention without hydronephrosis. [id number] Procedure Note Hm Interface, Radiology Results Incoming - 09/02/2018 11:00 PM CARRIAGE FEEDER EXAMINATION: US RENAL CLINICAL HISTORY: Renal failure chronic (kidney disease) COMPARISON: None. FINDINGS: The kidneys are normal in size and echogenicity. There is no evidence of renal mass, calculi, or hydronephrosis. Renal cortical thickness on each side is normal and symmetrical. No significant increase in cortical echogenicity noted. The right kidney measures 11.86 cm X 5.82 cm X 6.23 cm. The left kidney measures 10.70 cm X 5.85 cm X 5.53 cm. Ureter bladder is distended (calculated volume is 900 cc). The patient denied the or just urinate at this time. IMPRESSION: Bladder distention without hydronephrosis. [id number] Performing Organization Address City/State/Zipcode Phone Number [facility] [address] [place] [address] * Urinalysis screen and microscopy, with reflex to culture (09/02/2018 10:00 PM CARRIAGE FEEDER) Specimen site Clean catch [facility] Color, UA Straw [facility] Appearance, UA Clear [facility] Specific gravity, UA 1.010 1.001 - 1.035 [facility] pH, UA 6.0 5.0 - 8.5 [facility] Protein, UA 1+ (A) Negative [facility] Glucose, UA Negative Negative [facility] Ketones, UA Negative Negative [facility] Bilirubin, UA Negative Negative [facility] Blood, UA Small (A) Negative [facility] Nitrite, UA Negative Negative [facility] Urobilinogen, UA Negative <2.0 [facility] Leukocyte esterase, UA Negative Negative [facility] WBC, UA None seen 0 - 1 /HPF [facility] RBC, UA <1 0 - 5 /HPF [facility] Bacteria, UA None seen None seen [facility] Yeast, UA None seen [facility] Yeast with pseudohyphae, None seen [facility] Calcium oxalate crystals, Few [facility] Specimen Urine Performing Organization Address City/State/[facility] Phone Number [facility] DEPARTMENT OF [address] [place] [address] PATHOLOGY AND GENOMIC MEDICINE [address] * Urine culture (09/02/2018 10:00 PM CARRIAGE FEEDER) Urine culture SEE COMMENTComment: [facility] Bacteriuria screen negative. [facility] Performing Organization Address City/[facility] Phone Number [facility] DEPARTMENT OF [address] [place] [address] [place] [address] PATHOLOGY AND GENOMIC MEDICINE [address] * Cv bundle tier and labeler procedure (09/02/2018 10:18 AM CARRIAGE FEEDER) Narrative Performed At Performing Organization Address City/[facility] Phone Number [facility] [address] [place] [address] * Echocardiogram complete w contrast and 3D if needed (08/31/2018 10:52 AM CARRIAGE FEEDER) Ao Root Diameter 2.97 cm [facility] AoV Area, Vmax 2.16 cm2 [facility] AoV Area, VTI 2.79 cm2 [facility] AoV Mean PG 1.61 mmHg [facility] AoV Peak PG 3.04 mmHg [facility] AoV Vmax 0.95 m/s [facility] AoV VTI 0.12 m [facility] BSA Payan 2.13 m2 [facility] BSA 2.06 m2 [facility] IVS,d 1.08 cm [facility] IVS/LVPW,2D 1.03 [facility] Left Atrium Dimension 5.17 cm [facility] Anterior LV,d 5.58 cm [facility] LV EF,2D 20.27 % [facility] LV,s 5.17 cm [facility] LVOT area 3.08 cm2 [facility] LVOT Diam,S 1.98 cm [facility] LVOT Vmax 0.76 m/s [facility] LVOT VTI 0.13 m [facility] LVPWD,d 1.05 cm [facility] TR Vpeak 2.84 mm/s [facility] MV E A ratio 214.70 [facility] TR pk grad 32.34 mmHg [facility] AoV area i VTI BSA [place] 1.35 cm2/m2 [facility] MR Inst Flow Rt 11.47 ml/s [facility] MR Vmax 4.10 m/s [facility] MR Eff ARUN 2.87 mm2 [facility] BMI 29.39 kg/m2 [facility] E wave decelartion time 143.39 msec [facility] MV Peak A Dillon 0.00 m/s [facility] MV valve area p 1/2 5.29 cm2 [facility] method MV Peak E Dillon 0.78 m/s [facility] MV stenosis pressure 1/2 41.58 ms [facility] time AV LVOT peak gradient 1.50 mmHg [facility] MR Vol Cont Eq 3.87 ml [facility] Ao Root Diameter 2.97 cm [facility] MV mean gradient 0.74 mmHg [facility] LV SYS VOL 127.76 ml [facility] LV LYN VOL 152.09 ml [facility] LV SI Teich 2D 11.81 ml/m2 [facility] LV SV Teich 2D 24.34 ml [facility] LV Vol s Teich PSAX 127.76 ml [facility] LVOT CI 1.26 l/min/m2 [facility] LVOT CO 2.60 l/min [facility] LVOT HR for LVOT CO 82.43 bpm [facility] LVOT SI 15.30 ml/m2 [facility] MR peak grad 1.87 mmHg [facility] MV Vmax 0.68 m [facility] MV VTI Tips 0.09 m [facility] BSA [place] 2.12 m2 [facility] AoV Vmn 0.59 [facility] IVS s 2D 1.15 [facility] LV FS Teich 2D 7.27 [facility] MV AE ratio 0.00 [facility] LV FS Cube 2D 7.27 [facility] LVOT Vmn 0.51 [facility] Pt Size 175.26 [facility] Pt Wt 90.26 [facility] Aov area Vmn 2.29 cm2 [facility] LVOT mean grad 1.20 mmHg [facility] MAX Pred HR 159.50 [facility] 85 of MPHR 135.57 [facility] AoV area I VMN bsa 1.11 cm2/m2 [facility] Calc MPHR 159.50 bpm [facility] IVS pct thck PLAX 5.65 % [facility] LV SI Cube 2D 17.04 ml/m2 [facility] LV SV Cube 2D 35.13 ml [facility] LV vol d cube 2D 173.28 ml [facility] LV vol s cube 2D 138.15 ml [facility] LVPW pct thck PLAX 4.78 % [facility] LVPW s PLAX 1.10 cm [facility] MV Decel slope 5.44 m/s2 [facility] Pred Exer Dur R1 8.63 [facility] Pred METS R1 8.92 [facility] LA Vol MOD A4C 59.79 ml [facility] Velocity Ratio (V1/V2) 0.80 m/s [facility] EF 16.00 % [facility] Narrative Performed At [facility] Left Ventricular ejection fraction is <20%. Left atrium size is mildly dilated. The mitral valve appears thickened. There is prolapse present in the anterior leaflet of the mitral valve. There is moderate prolapse There is moderate mitral valve regurgitation. Performing Organization Address City/[facility] Phone Number [facility] [address] [place] [address] * Troponin (08/31/2018 10:16 AM CARRIAGE FEEDER) Only the most recent of 4 results within the time period is included. Troponin <0.30 0.00 - 0.30 ng/mL [facility] Comment: [facility] 0.11 - 1.49 ng/mlMay indicate increased risk of acute coronary syndrome. >=1.5 ng/ml Consistent with acute myocardial infarction. The diagnostic value of a single normal or non-diagnostic result is questionable.Serial samples at 2-6 hour intervals are required to rule out acute myocardial injury. Specimen Plasma specimen Performing Organization Address City/State/Zipcode Phone Number [facility] DEPARTMENT OF [address] [place] [address] PATHOLOGY AND GENOMIC MEDICINE [facility] [address] * Prothrombin time with INR (08/31/2018 5:40 AM CARRIAGE FEEDER) Prothrombin time 14.8 (H) 11.5 - 14.5 sec [facility] INR 1.19 NOAH [facility]INESS Comment: [facility] For patients on anticoagulant therapy, reference ranges below: Indication: INR Value Treatment of Venous Thrombosis, 2.0-3.0 pulmonary emboli, or prophylaxis of a venous thrombosis, or systemic emboli. High dose, high risk patients 3.0-4.5 with mechanical valves. NOTE:INR values over 3.0 are sometimes associated with gastrointestinal hemorrhage, especially values over 4.0. Specimen Blood Performing Organization Address City/State/Zipcode Phone Number [facility] DEPARTMENT OF [address] [place] [address] PATHOLOGY AND GENOMIC MEDICINE [place] [id number] * Lipid panel (08/31/2018 5:40 AM CARRIAGE FEEDER) Cholesterol 150 0 - 199 mg/dL [facility] Triglycerides 90 0 - 149 mg/dL [facility] HDL cholesterol 48 40 - 9,999 mg/dL [facility] LDL cholesterol 84Comment: Result obtained by 0 - 99 mg/dL [facility] direct LDL measurement [facility] Lipid panel See below [facility] interpretation Comment: [facility] Total Cholesterol (mg/dL) LDL Cholesterol (mg/dL) <200 Desirable <100 Optimal 200-239Borderline -[id number] 29Near or above optimal >=240High 130-159Borderline- high 160-189High >=190Very high HDL Cholesterol (mg/dL) Triglycerides (mg/dL) <40Low <150 Normal >=60 High 150-199Borderline- high 200-499High >=500Very high Risk Catergories that modify LDL goals. Risk Catergories LDL goal (mg/dL) CHD and CHD risk equivalent <100 (10-year risk >20%) Multiple (2+) risk factors <130 (10-year risk=<20%) 0-1 risk factors <160 (<10-year risk) Defining levels of lipids in metabolic syndrome Triglycerides >=150 mg/dL HDL Cholesterol Men <40 mg/dL Women <50 mg/dL Non-HDL cholesterol is a second target for therapy in persons with high triglycerides (>=200 mg/dL) Specimen Plasma specimen Performing Organization Address City/State/Zipcode Phone Number [facility] DEPARTMENT [address] [place] [address] PATHOLOGY AND GENOMIC MEDICINE [facility] [address] [place] [address] [facility] * XR Chest 1 Vw (08/30/2018 10:45 PM CARRIAGE FEEDER) Narrative Performed At EXAMINATION:XR CHEST 1 VW RADIANT CLINICAL HISTORY:chf COMPARISON:None IMPRESSION: Mild prominence of interstitial lung markings, suggestive of mild vascular congestion. Hazy airspace infiltration of right lung base may reflect atelectasis versus developing infiltrate. Small bilateral pleural effusions. No pneumothorax. Cardiac silhouette is upper limits of normal. No acute osseous abnormalities. Mild degenerative change of lower thoracic spine. [facility]-[id number] Procedure Note Hm Interface, Radiology Results Incoming - 08/30/2018 10:52 PM CARRIAGE FEEDER EXAMINATION: XR CHEST 1 VW CLINICAL HISTORY: chf COMPARISON: None IMPRESSION: Mild prominence of interstitial lung markings, suggestive of mild vascular congestion. Hazy airspace infiltration of right lung base may reflect atelectasis versus developing infiltrate. Small bilateral pleural effusions. No pneumothorax. Cardiac silhouette is upper limits of normal. No acute osseous abnormalities. Mild degenerative change of lower thoracic spine. [facility]-[id number] Performing Organization Address City/[facility]/Zipcode Phone Number [facility] [address] [place] [address] * ECG ED Preliminary Interpretation - Not an Order (08/30/2018 9:04 PM CARRIAGE FEEDER) Narrative Performed At Leighton Duval MD 08/31/2018 12:27 AM ECG ED Preliminary Interpretation - Not an Order Performed by: Leighton Duval MD Authorized by: Leighton Duval MD ECG reviewed by ED Physician in the absence of a first sampler: yes Interpretation: Interpretation: abnormal Rate: ECG rate:90 ECG rate assessment: normal Rhythm: Rhythm: sinus rhythm Ectopy: Ectopy: PVCs QRS: QRS axis:Right (borderline) QRS intervals:Normal Conduction: Conduction: abnormal Abnormal conduction: non-specific intraventricular conduction delay ST segments: ST segments:Normal T waves: T waves: normal * Comprehensive metabolic panel (08/30/2018 7:35 PM CARRIAGE FEEDER) Sodium 139 135 - 150 mEq/L [facility] Potassium 3.8 3.5 - 5.0 mEq/L [facility] Chloride 94 (L) 98 - 112 mEq/L [facility] CO2 32 (H) 24 - 31 mmol/L [facility] Anion gap 13@ANIO 7 - 15 mEq/L [facility] BUN 33 (H) 7 - 18 mg/dL [facility] Creatinine 1.30 (H) 0.70 - 1.20 mg/dL [facility] Glucose 177 (H) 65 - 100 mg/dL [facility] Calcium 9.1 8.8 - 10.2 mg/dL [facility] Protein 6.5 6.3 - 8.3 g/dL [facility] Albumin 2.6 (L) 3.5 - 5.0 g/dL [facility] A/G ratio 0.7 0.7 - 3.8 [facility] Alkaline phosphatase 113 0 - 129 U/L [facility] AST 32 10 - 50 U/L [facility] ALT 58 (H) 5 - 50 U/L [facility] Total bilirubin 0.5 0.2 - 1.2 mg/dL [facility] Specimen Plasma specimen Performing Organization Address City/State/Zipcode Phone Number [facility] DEPARTMENT OF [address] [place] [address] PATHOLOGY AND GENOMIC MEDICINE [place] [id number] [place], [place] [id number] [place] [address] after 11/14/2017 Insurance Payer Benefit Subscriber ID Type Phone Address Plan / Group HUMANA HUMANA xxxxxxxxx HMO HMO/POS/EP O/OPEN ACCESS Advance Directives Patient has advance care planning documents on file. For more information, ankush rodríguez contact: Noah Almanzar [address] [place] [address]
[2018-11-15] MEDS ORDERED: CEFEPIME 1GM/NS 0.9% 50 ML 50 ML IV ONE (21:15)
[2018-11-15 21:20] LABS: BASOPHILS # (AUTO) 0.1 (0.0-0.1); BASOPHILS % 0.7 % (0.0-1.0); EOSINOPHILS # (AUTO) 0.2 (0.0-0.4); EOSINOPHILS % 1.8 % (0.0-6.0); HEMATOCRIT 43.1 % (38.2-49.6); HEMOGLOBIN 13.6 g/dL (14.0-18.0); LYMPHOCYTES # (AUTO) 2.4 (1.0-3.2); LYMPHOCYTES % 22.8 % (18.0-39.1); MEAN CORPUSCULAR HEMOGLOBIN 29.4 pg (28-32); MEAN CORPUSCULAR HGB CONC 31.6 g/dL (31-35); MEAN CORPUSCULAR VOLUME 93.1 fL (81-99); MONOCYTES # (AUTO) 0.7 (0.2-0.8); MONOCYTES % 6.6 % (4.4-11.3); NEUTROPHILS % 67.9 % (38.7-80.0); PLATELET COUNT 301 x10e3/uL (140-360); RED BLOOD COUNT 4.63 x10e6/uL (4.3-5.7); RED CELL DISTRIBUTION WIDTH 19.2 % (11.7-14.4)
[2018-11-15 21:32] LABS: ALBUMIN 3.4 g/dL (3.5-5.0); ALBUMIN/GLOBULIN RATIO 0.8 (0.8-2.0); ANION GAP 14.4 mmol/L (8-16); CALCIUM 9.6 mg/dL (8.4-10.2); CREATININE, SERUM 1.44 mg/dL (0.72-1.25); POTASSIUM 4.4 mmol/L (3.5-5.1)
[2018-11-15] MEDS ORDERED: FAMOTIDINE20 MG PO (22:57)
[2018-11-15] MEDS ORDERED: ASPIRIN EC81 MG PO (22:57)
[2018-11-15] MEDS ORDERED: METFORMIN HCL500 MG PO (22:57)
[2018-11-15] MEDS ORDERED: CAPTOPRIL25 MG PO (22:57)
[2018-11-15] MEDS ORDERED: SPIRONOLACTONE25 MG PO (22:57)
[2018-11-15] MEDS ORDERED: TORSEMIDE20 MG PO (22:57)
[2018-11-15] MEDS ORDERED: CARVEDILOL6.25 MG PO (22:57)
[2018-11-15] MEDS ORDERED: ATORVASTATIN CA40 MG PO (22:57)
[2018-11-15] MEDS ORDERED: VANCOMYCIN 1GM/NS 250 ML 250 ML IV STA (23:20)
--- OUTSIDE RECORDS SUMMARY | 2018-11-16 02:33 | XMS REPORT | Clinical Summary ---
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 pectoris, unspecified vessel or lesion type; Shortness of breath 08/30/2018 [facility] General Internal Medicine - Encounter 09/11/2018 after 11/15/2017 Social History Date Tobacco Use Types Packs/Day [...] Taken Vital Sign Reading 09/11/2018 7:46 AM CARBONIZER Blood Pressure 114/70 09/11/2018 7:46 AM CARBONIZER Pulse 66 09/11/2018 7:46 AM CARBONIZER Temperature 36.1 C (96.9 F) 09/11/2018 7:46 AM CARBONIZER Respiratory Rate 18 09/11/2018 7:46 AM CARBONIZER Oxygen Saturation 100% - Inhaled Oxygen - Concentration 09/10/2018 6:40 AM CARBONIZER Weight 62.7 kg (138 lb 4.8 oz) 08/31/2018 5:01 AM CARBONIZER Height 175.3 cm (5' 9") 09/10/2018 6:40 AM CARBONIZER Body Mass Index 20.42 Plan of Treatment Health Maintenance Due Date Last Done Comments DIABETIC RETINAL EYE EXAM 1958 DIABETIC FOOT EXAM 1968 COLON CANCER SCREENING 2008 SHINGLES VACCINES (#1) 2008 INFLUENZA VACCINE 03/27/2018 Implants Device Identifier Shelf Expiration Date Model / Serial / Lot Implanted Type Area Manufactur er 04/26/2020 [id number] / / [id number] Device Vasclr Clsr Baln Cath 10ml Cardiovasc N/A: N/A ACCESS Lkng Syr 5fr Bejarano Mynxgrip - ular CLOSURE [id number] [employer]plants [employer] Implanted: 09/02/2018 (Quantity not on file) Procedures Comments Procedure Name Priority Date/Time Associated Diagnosis CARDIAC MRI FUNCTION Routine 10/24/2018 Ischemic cardiomyopathy VIABILITY CHF EVALUATION 12:07 PM CARBONIZER POC PANEL Routine 10/24/2018 10:19 AM CARBONIZER ESTIMATED GFR Routine 10/24/2018 10:19 AM CARBONIZER ESTIMATED GFR Routine 09/11/2018 5:43 AM CARBONIZER BASIC METABOLIC PANEL Routine 09/11/2018 5:43 AM CARBONIZER POC GLUCOSE Routine 09/11/2018 5:33 AM CARBONIZER POC GLUCOSE Routine 09/10/2018 7:53 PM CARBONIZER POC GLUCOSE Routine 09/10/2018 4:17 PM CARBONIZER POC GLUCOSE Routine 09/10/2018 11:16 AM CARBONIZER POC GLUCOSE Routine 09/10/2018 6:28 AM CARBONIZER POC GLUCOSE Routine 09/09/2018 8:06 PM CARBONIZER POC GLUCOSE Routine 09/09/2018 4:08 PM CARBONIZER POC GLUCOSE Routine 09/09/2018 10:58 AM CARBONIZER ESTIMATED GFR Routine 09/09/2018 6:51 AM CARBONIZER BASIC METABOLIC PANEL Routine 09/09/2018 6:51 AM CARBONIZER POC GLUCOSE Routine 09/09/2018 6:36 AM CARBONIZER POC GLUCOSE Routine 09/08/2018 8:43 PM CARBONIZER POC GLUCOSE Routine 09/08/2018 4:49 PM CARBONIZER POC GLUCOSE Routine 09/08/2018 11:37 AM CARBONIZER POC GLUCOSE Routine 09/08/2018 6:15 AM CARBONIZER POC GLUCOSE Routine 09/07/2018 8:36 PM CARBONIZER POC GLUCOSE Routine 09/07/2018 4:07 PM CARBONIZER POC GLUCOSE Routine 09/07/2018 11:17 AM CARBONIZER POC GLUCOSE Routine 09/07/2018 6:23 AM CARBONIZER POC GLUCOSE Routine 09/06/2018 8:16 PM CARBONIZER POC GLUCOSE Routine 09/06/2018 4:15 PM CARBONIZER ESTIMATED GFR Routine 09/06/2018 2:02 PM CARBONIZER BASIC METABOLIC PANEL Routine 09/06/2018 2:02 PM CARBONIZER POC GLUCOSE Routine 09/06/2018 11:23 AM CARBONIZER POC GLUCOSE Routine 09/06/2018 6:42 AM CARBONIZER XR CHEST 1 VW PORTABLE STAT 09/06/2018 1:08 AM CARBONIZER POC GLUCOSE Routine 09/05/2018 8:41 PM CARBONIZER POC GLUCOSE Routine 09/05/2018 4:36 PM CARBONIZER POC GLUCOSE Routine 09/05/2018 11:54 AM CARBONIZER POC GLUCOSE Routine 09/05/2018 7:50 AM CARBONIZER HC COMPLETE BLD COUNT Timed 09/05/2018 W/AUTO DIFF 7:10 AM CARBONIZER IONIZED CALCIUM Routine 09/05/2018 7:10 AM CARBONIZER XR CHEST 1 VW PORTABLE Routine 09/05/2018 5:47 AM CARBONIZER ESTIMATED GFR Timed 09/05/2018 4:29 AM CARBONIZER PHOSPHORUS LEVEL Timed 09/05/2018 4:29 AM CARBONIZER MAGNESIUM LEVEL Timed 09/05/2018 4:29 AM CARBONIZER BASIC METABOLIC PANEL Timed 09/05/2018 4:29 AM CARBONIZER POC GLUCOSE Routine 09/04/2018 9:52 PM CARBONIZER POC GLUCOSE Routine 09/04/2018 4:02 PM CARBONIZER SPIROMETRY Routine 09/04/2018 Coronary artery disease 3:46 PM CARBONIZER involving holy cross heart without angina pectoris, unspecified vessel or lesion type Shortness of breath US CAROTID DUPLEX STAT 09/04/2018 BILATERAL 12:20 PM CARBONIZER POC GLUCOSE Routine 09/04/2018 12:20 PM CARBONIZER POC GLUCOSE Routine 09/04/2018 8:10 AM CARBONIZER XR CHEST 1 VW PORTABLE STAT 09/04/2018 8:00 AM CARBONIZER ESTIMATED GFR Routine 09/04/2018 4:58 AM CARBONIZER PHOSPHORUS LEVEL Routine 09/04/2018 4:58 AM CARBONIZER MAGNESIUM LEVEL Routine 09/04/2018 4:58 AM CARBONIZER HC COMPLETE BLD COUNT Routine 09/04/2018 W/AUTO DIFF 4:58 AM CARBONIZER BASIC METABOLIC PANEL Routine 09/04/2018 4:58 AM CARBONIZER IONIZED CALCIUM Routine 09/04/2018 4:58 AM CARBONIZER POC GLUCOSE Routine 09/03/2018 9:58 PM CARBONIZER POC GLUCOSE Routine 09/03/2018 5:00 PM CARBONIZER HEMOGLOBIN A1C Routine 09/03/2018 3:00 PM CARBONIZER POC GLUCOSE Routine 09/03/2018 12:44 PM CARBONIZER ACTIVATED CLOTTING TIME Routine 09/03/2018 12:31 PM CARBONIZER POC GLUCOSE Routine 09/03/2018 8:25 AM CARBONIZER ESTIMATED GFR Routine 09/03/2018 7:58 AM CARBONIZER URINE PROTEIN/CREATININE Routine 09/03/2018 RATIO, RANDOM 7:58 AM CARBONIZER ESTIMATED GFR Timed 09/03/2018 5:12 AM CARBONIZER PHOSPHORUS LEVEL Timed 09/03/2018 5:12 AM CARBONIZER MAGNESIUM LEVEL Timed 09/03/2018 5:12 AM CARBONIZER HC COMPLETE BLD COUNT Timed 09/03/2018 W/AUTO DIFF 5:12 AM CARBONIZER BASIC METABOLIC PANEL Timed 09/03/2018 5:12 AM CARBONIZER MAGNESIUM LEVEL Routine 09/03/2018 5:12 AM CARBONIZER URIC ACID LEVEL Routine 09/03/2018 5:12 AM CARBONIZER VITAMIN D 25 HYDROXY Routine 09/03/2018 LEVEL 5:12 AM CARBONIZER PARATHYROID HORMONE Routine 09/03/2018 5:12 AM CARBONIZER IONIZED CALCIUM Routine 09/03/2018 5:12 AM CARBONIZER B NATRIURETIC PEPTIDE Routine 09/03/2018 5:12 AM CARBONIZER ECG 12-LEAD STAT 09/03/2018 1:13 AM CARBONIZER ESTIMATED GFR STAT 09/03/2018 12:52 AM CARBONIZER PHOSPHORUS LEVEL STAT 09/03/2018 12:52 AM CARBONIZER MAGNESIUM LEVEL STAT 09/03/2018 12:52 AM CARBONIZER BASIC METABOLIC PANEL STAT 09/03/2018 12:52 AM CARBONIZER US RENAL Routine 09/02/2018 10:53 PM CARBONIZER URINALYSIS SCREEN AND Routine 09/02/2018 MICROSCOPY, WITH REFLEX 10:00 PM CARBONIZER TO CULTURE URINE CULTURE Routine 09/02/2018 10:00 PM CARBONIZER POC GLUCOSE Routine 09/02/2018 8:38 PM CARBONIZER ESTIMATED GFR STAT 09/02/2018 6:10 PM CARBONIZER BASIC METABOLIC PANEL STAT 09/02/2018 6:10 PM CARBONIZER POC GLUCOSE Routine 09/02/2018 5:21 PM CARBONIZER POC GLUCOSE Routine 09/02/2018 2:29 PM CARBONIZER CV LEFT HEART CATH LV Routine 09/02/2018 GRAM WITH CORS 10:18 AM CARBONIZER POC GLUCOSE Routine 09/02/2018 6:19 AM CARBONIZER POC GLUCOSE Routine 09/01/2018 8:54 PM CARBONIZER POC GLUCOSE Routine 09/01/2018 4:30 PM CARBONIZER POC GLUCOSE Routine 09/01/2018 12:03 PM CARBONIZER ESTIMATED GFR Routine 09/01/2018 6:20 AM CARBONIZER MAGNESIUM LEVEL Routine 09/01/2018 6:20 AM CARBONIZER BASIC METABOLIC PANEL Routine 09/01/2018 6:20 AM CARBONIZER POC GLUCOSE Routine 09/01/2018 6:13 AM CARBONIZER POC GLUCOSE Routine 08/31/2018 8:52 PM CARBONIZER POC GLUCOSE Routine 08/31/2018 3:50 PM CARBONIZER ECHOCARDIOGRAM 2D Routine 08/31/2018 COMPLETE W MMODE SPECTRAL 10:52 AM CARBONIZER COLOR DOPPLER (02788) POC GLUCOSE Routine 08/31/2018 10:52 AM CARBONIZER MAGNESIUM LEVEL Routine 08/31/2018 10:16 AM CARBONIZER TROPONIN Timed 08/31/2018 10:16 AM CARBONIZER ECG 12-LEAD Routine 08/31/2018 8:30 AM CARBONIZER POC GLUCOSE Routine 08/31/2018 6:03 AM CARBONIZER TROPONIN Routine 08/31/2018 5:40 AM CARBONIZER ESTIMATED GFR Routine 08/31/2018 5:40 AM CARBONIZER LIPID PANEL Routine 08/31/2018 5:40 AM CARBONIZER BASIC METABOLIC PANEL Routine 08/31/2018 5:40 AM CARBONIZER PROTHROMBIN TIME WITH INR Routine 08/31/2018 5:40 AM CARBONIZER HC COMPLETE BLD COUNT Routine 08/31/2018 W/AUTO DIFF 5:40 AM CARBONIZER ECG 12-LEAD Routine 08/31/2018 5:02 AM CARBONIZER XR CHEST 1 VW STAT 08/30/2018 10:45 PM CARBONIZER TROPONIN Timed 08/30/2018 10:38 PM CARBONIZER ECG ED PRELIMINARY Routine 08/30/2018 INTERPRETATION 9:04 PM CARBONIZER ESTIMATED GFR STAT 08/30/2018 7:35 PM CARBONIZER B NATRIURETIC PEPTIDE STAT 08/30/2018 7:35 PM CARBONIZER TROPONIN STAT 08/30/2018 7:35 PM CARBONIZER COMPREHENSIVE METABOLIC STAT 08/30/2018 PANEL 7:35 PM CARBONIZER HC COMPLETE BLD COUNT STAT 08/30/2018 W/AUTO DIFF 7:35 PM CARBONIZER ECG 12-LEAD STAT 08/30/2018 6:35 PM CARBONIZER after 11/15/2017 Results * Cardiac mri function viability chf evaluation (10/24/2018 12:07 PM CARBONIZER) Narrative Performed At [facility] CMR Report Name:DHRUV ENCINAS :1960 Scan Date: 2018-10-24 10:34:19 Electronically signed by Rnadal Goodman M.D. 15:27:53 VITALS HEIGHT/WEIGHT --------- HEIGHT:69.00 [...] | Base Inferior| Akinetic| 26-50% || Sub-Endo DE| | Base Inferolateral | Akinetic| 1-25%|| Sub-Endo DE| | Base Anterolateral | Mild/Mod Hypo | None ||| | Mid Anterior | Mild/Mod Hypo | None ||| | Mid Anteroseptal | Akinetic| 1-25%|| Sub-Endo DE| | Mid Inferoseptal | Akinetic| 1-25%|| Sub-Endo DE| | Mid Inferior | Akinetic| 26-50% || Sub-Endo DE| | Mid Inferolateral| Severe Hypo | 26-50% || Sub-Endo DE| | Mid Anterolateral| Mild/Mod Hypo | None ||| | Apical Anterior| Mild/Mod Hypo | None ||| | Apical Septal| Akinetic| 26-50% || Sub-Endo DE| | Apical Inferior| Akinetic| 1-25%|| Transmural DE| | Apical Lateral | Mild/Mod Hypo | 1-25%|| Sub-Endo DE| | [place] | Akinetic| 1-25%|| Sub-Endo DE| + + + + +---- + | [...] INFO GENERAL --------- CONTRAST AGENT TYPE:Dotarem LOT NUMBER:[id number] EXPIRATION DATE:2019-02-23 00:00:00 VOLUME ADMINISTERED:25 ml DOSAGE FOR 0.5M:0.15 mmol/kg SERUM CREATININE:1.4 sCr GFR:54.94 ml/min/1.73m^2 CREATININE DATE:2018-10-24 00:00:00 SEDATION SEDATION USED?:No PULSE SEQUENCES Single-Shot SSFP, IR GRE - Segmented, IR SSFP - Single Shot, Single Shot BB KATHIE, SSFP Cine, Phase Contrast Velocity Mapping, 3D MRA w and w/o contrast SETUP TYPE:Clinical INPATIENT:No LOCATION:[facility] INCOMPLETE SCAN:No REASON(S) FOR SCAN:Cardiomyopathy REFERRING PHYSICIAN:Wai Hernandez MD ATTENDING PHYSICIAN:Wai Hernandez MD TECHNICIANS:1) Elder Duarte RT 2) Delphine BARAJAS Patient Account [id number] CPT Codes 00265, 54482, 83931 HCPCS Codes A9579 ICD10 Codes I25.5 ADDITIONAL NOTES MR/TR/?AR SEEN LVOT 42 AOFF 48 PAFF 46 MR=73 - 48=25 MRF=25/73=34% TR=60 - 46=14 TRF=14/60=23% Report generated by Precession, a product of [employer] Procedure Note Interface, Radiology Results In - 10/24/2018 3:28 PM CARBONIZER [facility] CMR Report Name: DHRUV ENCINAS : 1960 [...] | Akinetic | 26-50% | | Sub-Endo DE | | Base Inferolateral | Akinetic | 1-25% | | Sub-Endo DE | | Base Anterolateral | Mild/Mod Hypo | None | | | | Mid Anterior | Mild/Mod Hypo | None | | | | Mid Anteroseptal | Akinetic | 1-25% | | Sub-Endo DE | | Mid Inferoseptal | Akinetic | 1-25% | | Sub-Endo DE | | Mid Inferior | Akinetic | 26-50% | | Sub-Endo DE | | Mid Inferolateral | Severe Hypo | 26-50% | | Sub-Endo DE | | Mid Anterolateral | Mild/Mod Hypo | None | | | | Apical Anterior | Mild/Mod Hypo | None | | | | Apical Septal | Akinetic | 26-50% | | Sub-Endo DE | | Apical Inferior | Akinetic | 1-25% | | Transmural DE | | Apical Lateral | Mild/Mod Hypo | 1-25% | | Sub-Endo DE | | [place] | Akinetic | 1-25% | | Sub-Endo DE | + + + + + + [...] GENERAL CONTRAST AGENT TYPE: Dotarem LOT NUMBER: [id number] EXPIRATION DATE: 2019-02-23 00:00:00 VOLUME ADMINISTERED: 25 ml DOSAGE FOR 0.5M: 0.15 mmol/kg SERUM CREATININE: 1.4 sCr GFR: 54.94 ml/min/1.73m^2 CREATININE DATE: 2018-10-24 00:00:00 SEDATION SEDATION USED?: No PULSE SEQUENCES Single-Shot SSFP, IR GRE - Segmented, IR SSFP - Single Shot, Single Shot BB KATHIE, SSFP Cine, Phase Contrast Velocity Mapping, 3D MRA w and w/o contrast SETUP TYPE: Clinical INPATIENT: No LOCATION: [facility] INCOMPLETE SCAN: No REASON(S) FOR SCAN: Cardiomyopathy REFERRING PHYSICIAN: Wai Hernandez MD ATTENDING PHYSICIAN: Wai Hernandez MD TECHNICIANS: 1) Elder Duarte RT 2) Delphine BARAJAS Patient Account [id number] CPT Codes 86253, 65928, 29169 [facility] C[facility] A9579 ICD10 Codes I25.5 ADDITIONAL NOTES MR/TR/?AR SEEN LVOT 42 AOFF 48 PAFF 46 MR=73 - 48=25 MRF=73=34% TR=60 - 46=14 TRF=1460=23% Report generated by Precession, a product of [employer] Performing Organization Address [facility] Phone Number [facility] [address] [place] [address] * Estimated GFR (10/24/2018 10:19 AM CARBONIZER) Only the most recent of 13 results within the time period is included. Estimated GFR 54 (A) mL/min/1.73 m2 [facility] Comment: HOSPITAL CatergoryUnitsInte rpretation G1 >=90 Normal or high G2 60-89Mildly decreased E2q85-89 Mildly to moderately decreased K3j05-93 Moderately to severely decreased G4 15-29Severely decreased G5 <15Kidney failure The eGFR was calculated using the Chronic Kidney Disease Epidemiology Collaboration (CKD-EPI) equation. Interpretation is based on recommendations of the National Kidney Foundation-Kidney Disease Outcomes Quality Initiative (NKF-KDOQI) published in 2014. Specimen Blood Performing Organization Address [facility] Phone Number [facility] DEPARTMENT OF [address] [place] [address] PATHOLOGY AND GENOMIC MEDICINE NOAH MCCOYIST [address] * POC panel (10/24/2018 10:19 AM CARBONIZER) POC creatinine 1.4 (H) 0.7 - 1.2 mg/dl [facility] POC hematocrit 40 (L) 41 - 51 % [facility] Comment: HOSPITAL Meter ID: [id number] Operational Meteorologist: David Doyle Performing Organization Address City/State/Zipcode Phone Number [facility] DEPARTMENT OF [address] [place] [address] PATHOLOGY AND GENOMIC MEDICINE [address] * Basic metabolic panel (09/11/2018 5:43 AM CARBONIZER) Only the most recent of 10 results within the time period is included. Sodium 138 135 - 150 mEq/L [facility] Potassium 4.4 3.5 - 5.0 mEq/L [facility] Chloride 94 (L) 98 - 112 mEq/L [facility] CO2 28 24 - 31 mmol/L [facility] Anion gap 16@ANIO (H) 7 - 15 mEq/L [facility] BUN 55 (H) 7 - 18 mg/dL [facility] Creatinine 1.80 (H) 0.70 - 1.20 mg/dL [facility] Glucose 114 (H) 65 - 100 mg/dL [facility] Calcium 10.1 8.8 - 10.2 mg/dL [facility] Specimen Plasma specimen Performing Organization Address [facility] Phone Number [facility] DEPARTMENT [address] [place] [id number] PATHOLOGY AND GENOMIC MEDICINE [facility] [address] * POC glucose (09/11/2018 5:33 AM CARBONIZER) Only the most recent of 45 results within the time period is included. POC glucose 110 (H) 65 - 100 mg/dL [facility] Comment: [facility] Meter ID: [id number] Operational Meteorologist: Terri Rapp Performing Organization Address City/[facility] Phone Number [facility] DEPARTMENT [address] [place] [address] [address] [facility] [address] [place], [place] [id number] [place] [address] * XR Chest 1 Vw Portable (09/06/2018 1:08 AM CARBONIZER) Only the most recent of 3 results [...] abnormalities. Mild degenerative change of thoracic spine. [id number] Procedure Note Hm Interface, Radiology Results Incoming - 09/06/2018 1:23 AM CARBONIZER EXAMINATION: XR CHEST 1 VW PORTABLE CLINICAL HISTORY: ICU pt stable with no clinical status changes COMPARISON: 09/05/2018 IMPRESSION: Mild prominence of interstitial lung markings, suggestive of mild vascular congestion. No consolidations, effusions, or pneumothorax. Cardiomediastinal silhouette is within normal limits. No acute osseous abnormalities. Mild degenerative change of thoracic spine. [facility]-[id number] Performing Organization Address City/State/Zipcode Phone Number [facility] [address] [place] [address] * CBC with platelet and differential (09/05/2018 7:10 AM CARBONIZER) Only the most recent of 5 results within the time period is included. WBC 10.1 4.2 - 11.0 k/uL [facility] RBC 5.60 4.04 - 5.86 m/uL [facility] HGB 16.1 13.0 - 17.3 g/dL [facility] HCT 48.8 (H) 34.0 - 45.0 % [facility] MCV 87.1 80.0 - 98.0 fL [facility] MCH 28.8 27.0 - 34.0 pg [facility] MCHC 33.0 31.5 - 36.5 g/dL [facility] RDW - SD 49.1 37.0 - 51.0 fL [facility] MPV 11.2 (H) 7.4 - 10.4 fL [facility] Platelet count 272 150 - 400 k/uL [facility] Nucleated RBC 0.00 /100 WBC [facility] Neutrophils 66.2 (H) 36.0 - 66.0 % [facility] Lymphocytes 22.2 (L) 24.0 - 44.0 % [facility] Monocytes 9.0 (H) 0.0 - 6.0 % [facility] Eosinophils 1.5 0.0 - 6.0 % [facility] Basophils 0.7 0.0 - 1.2 % [facility] Immature granulocytes 0.4 0.0 - 1.0 % [facility] Specimen Blood Performing Organization Address City/[facility] [place] [address] PATHOLOGY AND [facility] MEDICINE [address] * Ionized calcium (09/05/2018 7:10 AM CARBONIZER) Only the most recent of 3 results within the time period is included. pH 7.46 [facility] Ionized calcium 1.04 (L) 1.11 - 1.32 mmol/L [facility] Specimen Plasma specimen Performing Organization Address [facility] [place] [address] PATHOLOGY AND [facility] MEDICINE [address] * Phosphorus level (09/05/2018 4:29 AM CARBONIZER) Only the most recent of 4 results within the time period is included. Phosphorus 5.4 (H) 2.4 - 4.5 mg/dL [facility] Specimen Plasma specimen Performing Organization Address City/[facility] [place] [address] PATHOLOGY AND GENOMIC MEDICINE [address] * Magnesium level (09/05/2018 4:29 AM CARBONIZER) Only the most recent of 7 results within the time period is included. Magnesium 1.90 1.60 - 2.40 mg/dL [facility] Specimen Plasma specimen Performing Organization Address City/[facility]/Zipcode Phone Number [facility] DEPARTMENT OF [address] [place] [address] PATHOLOGY AND GENOMIC MEDICINE [place] [id number] [place], [place] [id number] [place] [address] * Spirometry (09/04/2018 3:46 PM CARBONIZER) FEV1 Pre 3.12 L [facility] FEV1/FVC [...] C[facility] Narrative Performed At Performing Organization Address City/[facility]/Zipcode Phone Number [facility] [address] [place] [address] * Us carotid duplex (09/04/2018 12:20 PM CARBONIZER) Narrative Performed At Examination: US CAROTID DUPLEX [...] bilaterally and proximal internal carotid arteries bilaterally. [id number] Procedure Note Interface, Radiology Results Incoming - 09/04/2018 3:29 PM CARBONIZER Examination: US CAROTID DUPLEX BILATERAL CLINICAL HISTORY: [...] bilaterally and proximal internal carotid arteries bilaterally. [id number] Performing Organization Address City/[facility]/Zipcode Phone Number [facility] [address] [place] [address] * Hemoglobin A1c (09/03/2018 3:00 PM CARBONIZER) Hemoglobin A1C 8.0 (H) 4.0 - 6.0 % NOAH ALMANZAR Comment: [facility] Less than 6% - Goal of therapy for Type II Diabetes Less than 7%-Goal of therapy for Type I Diabetes Less than 8%-Accepta ble control for Type I or Type II Diabetes Greater than 8%-Unacceptabl e control; action indicated. (ADA94) Specimen Blood Performing Organization Address [facility] [place] [address] PATHOLOGY AND [facility] MEDICINE [address] * Activated clotting time (09/03/2018 12:31 PM CARBONIZER) Activated clotting time 142.0 (H) 74.0 - 125.0 sec [facility] Comment: [facility] Meter ID: [id number] Operational Meteorologist: Sanjana Dillard Performing Organization Address [facility] [place] [address] PATHOLOGY AND GENOMIC MEDICINE [address] * Urine protein/creatinine ratio, random (09/03/2018 7:58 AM CARBONIZER) Protein, urine random 30 mg/dL [facility] Protein 6.5 6.3 - 8.3 g/dL [facility] Protein clearance, urine 4.62 [facility] Creatinine, urine, random 11 mg/dL [facility] Creatinine 1.60 (H) 0.70 - 1.20 mg/dL [facility] Urine creatinine ratio 6.88 [facility] Prot/creat ratio, urine 67.15 [facility] Specimen Urine Performing Organization Address City/[facility]/Zipcode Phone Number [facility] DEPARTMENT OF [address] [place] [address] [address] [facility] [address] * Vitamin D 25 hydroxy level (09/03/2018 5:12 AM CARBONIZER) Vitamin D, 25-hydroxy 10.3 (L) 30.0 - 150.0 ng/mL [facility] Comment: HOSPITAL This assay reports the sum [...] alternative methods. Specimen Blood Performing Organization Address [facility] Phone Number [facility] DEPARTMENT OF [address] [place] [address] PATHOLOGY AND [facility] MEDICINE [address] * Uric acid level (09/03/2018 5:12 AM CARBONIZER) Uric acid 10.1 (H) 3.4 - 7.0 mg/dL [facility] Specimen Plasma specimen Performing Organization Address City/State/Zipcode Phone Number [facility] [place] DE[facility]MENT OF [address] [place] [id number] PATHOLOGY AND GENOMIC MEDICINE [facility] [address] * Parathyroid hormone (09/03/2018 5:12 AM CARBONIZER) PTH 103 (H) 15 - 65 pg/mL [facility] Specimen Blood Performing Organization Address City/[facility]/Zipcode Phone Number [facility] DEPARTMENT OF [address] [place] [address] PATHOLOGY AND GENOMIC MEDICINE [facility] [address] * B natriuretic peptide (09/03/2018 5:12 AM CARBONIZER) Only the most recent of 2 results within the time period is included. BNP 4,750 (H) 0 - 100 pg/mL [facility] Specimen Blood Performing Organization Address City/[facility]/Zipcode Phone Number [facility] DEPARTMENT OF [address] [place] [address] [address] [facility] [address] * ECG 12 lead (09/03/2018 1:13 AM CARBONIZER) Only the most recent of 4 results within the time period is included. Ventricular rate 69 [facility] Atrial rate 69 [facility] NV interval 162 [facility] QRSD interval 120 [facility] QT interval 470 [facility] QTC interval 503 [facility] P axis 1 67 [facility] QRS axis 1 -74 [facility] T wave axis 96 [facility] EKG impression Normal sinus rhythm-Left axis [facility] MUSE deviation-Incomplete left bundle branch block-T wave abnormality, consider lateral ischemia-Abnormal ECG-In automated comparison with ECG of 31-AUG-2018 08:30,-premature ventricular complexes are no longer present-QRS axis shifted left-Nonspecific T wave abnormality no longer evident in Inferior leads-T wave inversion more evident in Lateral leads- Narrative Performed At Performing Organization Address City/[facility] Phone Number [facility] MUSE [address] [place] [address] * US Renal (09/02/2018 10:53 PM CARBONIZER) Narrative Performed At EXAMINATION:US RENAL RADIANT CLINICAL HISTORY:Renal failurechronic (kidney disease) COMPARISON:None. FINDINGS: The kidneys are normal in size and echogenicity. There is no evidence of renal mass, calculi, or hydronephrosis. Renal cortical thickness on each side is normal and symmetrical. No significant increase in cortical echogenicity noted. The right kidney nwafxeip46.86 cmX5.82 cmX6.23 cm. The left kidney uddldtjn86.70 cmX5.85 cm X 5.53 cm. Ureter bladder is distended (calculated volume is 900 cc). The patient denied the or just urinate at this time. IMPRESSION: Bladder distention without hydronephrosis. [id number] Procedure Note Hm Interface, Radiology Results Incoming - 09/02/2018 11:00 PM CARBONIZER EXAMINATION: US RENAL CLINICAL HISTORY: Renal failure [...] this time. IMPRESSION: Bladder distention without hydronephrosis. [id number] Performing Organization Address City/State/Zipcode Phone Number [facility] [address] [place] [address] * Urinalysis screen and microscopy, with reflex to culture (09/02/2018 10:00 PM CARBONIZER) Specimen site Clean catch [facility] Color, UA Straw [facility] Appearance, UA Clear [facility] Specific gravity, UA 1.010 1.001 - 1.035 [facility] pH, UA 6.0 5.0 - 8.5 [facility] Protein, UA 1+ (A) Negative [facility] Glucose, UA Negative Negative [facility] Ketones, UA Negative Negative [facility] Bilirubin, UA Negative Negative [facility] Blood, UA Small (A) Negative [facility] Nitrite, UA Negative Negative [facility] Urobilinogen, UA Negative <2.0 [facility] Leukocyte esterase, UA Negative Negative [facility] WBC, UA None seen 0 - 1 /HPF [facility] RBC, UA <1 0 - 5 /HPF [facility] Bacteria, UA None seen None seen [facility] Yeast, UA None seen [facility] Yeast with pseudohyphae, None seen [facility] Calcium oxalate crystals, Few [facility] Specimen Urine Performing Organization Address City/State/[facility] Phone Number [facility] DEPARTMENT OF [address] [place] [address] PATHOLOGY AND GENOMIC MEDICINE [address] * Urine culture (09/02/2018 10:00 PM CARBONIZER) Urine culture SEE COMMENTComment: [facility] Bacteriuria screen negative. [facility] Performing Organization Address City/[facility] Hospital[facility] Phone Number [facility] DEPARTMENT OF [address] [place] [address] [place] [address] PATHOLOGY AND GENOMIC MEDICINE [address] [place] * Cv warehouse laborer procedure (09/02/2018 10:18 AM CARBONIZER) Narrative Performed At Performing Organization Address City/[facility] Hospitalcony Phone Number [facility] [address] [place] [address] * Echocardiogram complete w contrast and 3D if needed (08/31/2018 10:52 AM CARBONIZER) Ao Root Diameter 2.97 cm [facility] [...] [facility] AoV area i VTI BSA [place] 1.35 cm2/m2 [facility] MR Inst Flow [...] moderate mitral valve regurgitation. Performing Organization Address City/[facility] Hospital[facility] Phone Number [facility] [address] [place] [address] * Troponin (08/31/2018 10:16 AM CARBONIZER) Only the most recent of 4 results within the time period is included. Troponin <0.30 0.00 - 0.30 ng/mL [facility] Comment: [facility] 0.11 - 1.49 ng/mlMay indicate increased risk of acute coronary syndrome. >=1.5 ng/ml Consistent with acute myocardial infarction. The diagnostic value of a single normal or non-diagnostic result is questionable.Serial samples at 2-6 hour intervals are required to rule out acute myocardial injury. Specimen Plasma specimen Performing Organization Address City/State/Zipcode Phone Number [facility] DEPARTMENT OF [address] [place] [address] [address] [facility] [address] * Prothrombin time with INR (08/31/2018 5:40 AM CARBONIZER) Prothrombin time 14.8 (H) 11.5 - 14.5 sec [facility] INR 1.19 [facility] Comment: [facility] For patients on anticoagulant therapy, reference ranges below: Indication: INR Value Treatment of Venous Thrombosis, 2.0-3.0 pulmonary emboli, or prophylaxis of a venous thrombosis, or systemic emboli. High dose, high risk patients 3.0-4.5 with mechanical valves. NOTE:INR values over 3.0 are sometimes associated with gastrointestinal hemorrhage, especially values over 4.0. Specimen Blood Performing Organization Address City/State/Zipcode Phone Number [facility] DEPARTMENT OF [address] [place] [address] PATHOLOGY AND GENOMIC MEDICINE [place] [address] * Lipid panel (08/31/2018 5:40 AM CARBONIZER) Cholesterol 150 0 - 199 mg/dL [facility] Triglycerides 90 0 - 149 mg/dL [facility] HDL cholesterol 48 40 - 9,999 mg/dL [facility] LDL cholesterol 84Comment: Result obtained by 0 - 99 mg/dL [facility] direct LDL measurement [facility] Lipid panel See below [facility] interpretation Comment: [facility] Total Cholesterol (mg/dL) LDL Cholesterol (mg/dL) <200 Desirable <100 Optimal 200-239Borderline -[id number] 29Near or above optimal >=240High 130-159Borderline- high [...] Phone Number [facility] DEPARTMENT [address] [place] [address] [facility] [address] [place] [address] [facility] * XR Chest 1 Vw (08/30/2018 10:45 PM CARBONIZER) Narrative Performed At EXAMINATION:XR CHEST 1 VW RADIANT CLINICAL HISTORY:chf COMPARISON:None IMPRESSION: Mild prominence of interstitial lung markings, suggestive of mild vascular congestion. Hazy airspace infiltration of right lung base may reflect atelectasis versus developing infiltrate. Small bilateral pleural effusions. No pneumothorax. Cardiac silhouette is upper limits of normal. No acute osseous abnormalities. Mild degenerative change of lower thoracic spine. [facility]-[id number] Procedure Note Hm Interface, Radiology Results Incoming - 08/30/2018 10:52 PM CARBONIZER EXAMINATION: XR CHEST 1 VW CLINICAL HISTORY: chf COMPARISON: None IMPRESSION: Mild prominence of interstitial lung markings, suggestive of mild vascular congestion. Hazy airspace infiltration of right lung base may reflect atelectasis versus developing infiltrate. Small bilateral pleural effusions. No pneumothorax. Cardiac silhouette is upper limits of normal. No acute osseous abnormalities. Mild degenerative change of lower thoracic spine. [facility]-[id number] Performing Organization Address City/[facility]/Zipcode Phone Number [facility] [address] [place] [address] * ECG ED Preliminary Interpretation - Not an Order (08/30/2018 9:04 PM CARBONIZER) Narrative Performed At Leighton Duval MD 08/31/2018 12:27 AM ECG ED Preliminary Interpretation - Not an Order Performed by: Leighton Duval MD Authorized by: Leighton Duval MD ECG reviewed by ED Physician in the absence of a parts counter sales person: yes Interpretation: Interpretation: abnormal Rate: ECG rate:90 ECG rate assessment: normal Rhythm: Rhythm: sinus rhythm Ectopy: Ectopy: PVCs QRS: QRS axis:Right (borderline) QRS intervals:Normal Conduction: Conduction: abnormal Abnormal conduction: non-specific intraventricular conduction delay ST segments: ST segments:Normal T waves: T waves: normal * Comprehensive metabolic panel (08/30/2018 7:35 PM CARBONIZER) Sodium 139 135 - 150 mEq/L [facility] Potassium 3.8 3.5 - 5.0 mEq/L [facility] Chloride 94 (L) 98 - 112 mEq/L [facility] CO2 32 (H) 24 - 31 mmol/L [facility] Anion gap 13@ANIO 7 - 15 mEq/L [facility] BUN 33 (H) 7 - 18 mg/dL [facility] Creatinine 1.30 (H) 0.70 - 1.20 mg/dL [facility] Glucose 177 (H) 65 - 100 mg/dL [facility] Calcium 9.1 8.8 - 10.2 mg/dL [facility] Protein 6.5 6.3 - 8.3 g/dL [facility] Albumin 2.6 (L) 3.5 - 5.0 g/dL [facility] A/G ratio 0.7 0.7 - 3.8 [facility] Alkaline phosphatase 113 0 - 129 U/L [facility] AST 32 10 - 50 U/L [facility] ALT 58 (H) 5 - 50 U/L [facility] Total bilirubin 0.5 0.2 - 1.2 mg/dL [facility] Specimen Plasma specimen Performing Organization Address City/State/Zipcode Phone Number [facility] DEPARTMENT OF [address] [place] [address] PATHOLOGY AND GENOMIC MEDICINE [place] [address] [place], [place] [id number] [place] [address] after 11/15/2017 Insurance Payer Benefit Subscriber ID Type Phone Address Plan / Group HUMANA HUMANA xxxxxxxxx HMO HMO/POS/EP O/OPEN ACCESS Advance Directives Patient has advance care planning documents on file. For more information, ankush rodríguez contact: Noah Almanzar [address] [place] [address]
--- NOTE | 2018-11-16 07:34 | NUR ---
PATIENT WAS SCHEDULED FOR MRI OF LEGS. HE HAS EXTERNAL DEFIB. ORDER SWITCHED TO CT SCAN
[2018-11-16] MEDS ORDERED: DEXTROSE 50% SYRINGE 50 ML IV PRN (07:45)
[2018-11-16] MEDS: INSULIN REGULAR, HUMAN 100 UNIT/1 ML 3ML VIAL SQ SCH ×3 (09:15→21:00)
--- NOTE | 2018-11-16 09:15 | NUR ---
PATIENT DID NOT LIKE THE BREAKFAST TRAY. STATED HIS BLOOD SUGAR SPIKES WITH PANCAKES. CAFETERIA BROUGHT OATMEAL REQUESTED DR. GOMEZ SPEAKING WITH PATIENT, BONE SCAN WILL BE ORDER FOR LOWER EXTREMITIES INSTEAD OF CT SCAN TO R/O OSTEOMYLITIS
--- NOTE | 2018-11-16 10:22 | NUR ---
PATIENT UPSET HE IS NOT GETTING BONE SCAN TODAY PER DR. MONTALVO ORDERS. DR. GOMEZ AWARE AND ASKED TO SPEAK WITH PATIENT
--- NOTE | 2018-11-16 11:06 | NUR ---
SPOKE WITH DR. MALDONADO ON THE PHONE AND UPDATED HIM ON PATIENTS STATUS. HE WAS GIVEN DR. MONTALVO PHONE NUMBER TO [facility] FOR PLAN OF CARE WITH PATIENT
--- NOTE | 2018-11-16 11:52 | NUR ---
DIET CHANGED FROM CARDIAC TO DIABETIC DIET
--- NOTE | 2018-11-16 11:55 | NUR ---
PATIENT PLACED ON WAFFLE
--- NOTE | 2018-11-16 12:29 | NUR ---
DR. COLON IN E.R. EVALUATING PATIENT
--- NOTE | 2018-11-16 13:20 | NUR ---
RECEIVED PT FROM ER VIA STRETCHER. PT IS AAOX4. PT DENIED NEEDS AT THIS TIME. CALL ZIEGLER WITH IN REACH. BED AT LOWEST POSITION.
[2018-11-16 13:30] VITALS: BP 142/109
[2018-11-16 14:03] VITALS: BP 142/109
[2018-11-16] MEDS ORDERED: CARVEDILOL 12.5 MG TAB PO SCH (15:00)
[2018-11-16] MEDS: CAPTOPRIL 25 MG TAB PO SCH ×3 (15:00→21:43)
[2018-11-16 16:00] VITALS: BP 136/86
--- NOTE | 2018-11-16 16:00 | NUR ---
DR MALDONADO AT BEDSIDE. COMPLETED DRESSING CHANGE BILATERALLY BY DR MALDONADO
[2018-11-16] MEDS: CARVEDILOL 3.125 MG TAB PO SCH (16:41)
[2018-11-16] MEDS ORDERED: NON-FORMULARY MEDICATION (Carvedilol 6.25 MG) PO SCH (17:00)
[2018-11-16] MEDS: METOCLOPRAMIDE HCL 10 MG/2ML VIAL IV SCH (18:28)
--- NOTE | 2018-11-16 19:00 | NUR ---
BEDSIDE REPORT GIVEN TO ONCOMING EDUCATION ASSOCIATE RN
[2018-11-16 20:22] VITALS: BP 128/68
--- NOTE | 2018-11-16 21:00 | NUR ---
LOW BLOOD SUGAR. PATIENT IS ALERT. NO COMPLAINTS. OFFERED AND ACCEPTED SNACKS.
[2018-11-16 21:20] VITALS: BP 128/68
[2018-11-16] MEDS: FAMOTIDINE 20 MG TAB PO SCH (21:43)
[2018-11-16] MEDS: ATORVASTATIN 40 MG TAB PO SCH (21:43)
[2018-11-16] MEDS ORDERED: SODIUM CHLORIDE 0.9% 250ML 250 ML ONE (21:59)
[2018-11-16] MEDS ORDERED: CEFEPIME 1GM/NS 0.9% 50 ML 50 ML IV SCH (22:30)
--- NOTE | 2018-11-16 22:42 | NUR ---
BLOOD SUGAR RECHECKED 86MG/DL PATIENT IS ASYMPTOMATIC.
[2018-11-16] MEDS ORDERED: VANCOMYCIN 1GM/NS 250 ML 250 ML IV SCH (23:30)
[2018-11-17] VITALS (7 sets, daily range): BP systolic 128–138; BP diastolic 58–77
[2018-11-17] MEDS: METOCLOPRAMIDE HCL 10 MG/2ML VIAL IV SCH ×5 (00:22→23:49)
--- NOTE | 2018-11-17 01:54 | Consultation ---
DATE OF CONSULTATION: 11/16/2018 CHIEF COMPLAINT: Right ankle redness and swelling. HISTORY OF PRESENT ILLNESS: The patient is a 58-year-old male with past medical history of well controlled type 2 diabetes mellitus and congestive heart failure, who presents with right lower extremity cellulitis that began 3 to 4 days ago. The cellulitis is secondary to an ulceration on the medial malleolus of the right ankle that began in early August 2018. The patient presented to the emergency department yesterday for his chief complaint and was given IV antibiotics and admitted to the hospital for further workup and pain control. PAST MEDICAL HISTORY: Significant for type 2 diabetes mellitus and congestive heart failure, the patient has an external defibrillator. PAST SURGICAL HISTORY: The patient denies. MEDICATIONS: 1. Metformin. 2. Atorvastatin. 3. Famotidine. 4. Captopril. 5. Spironolactone. 6. Carvedilol. 7. Torsemide. 8. Aspirin. ALLERGIES: NO KNOWN DRUG ALLERGIES. SOCIAL HISTORY: The patient is a former smoker, who quit about 1 year ago. The patient admits to social alcohol use. The patient denies any illicit drug use. FAMILY HISTORY: Significant for diabetes mellitus type 2 and heart disease in mother and father. REVIEW OF SYSTEMS: Positive for redness, swelling, pain, ulceration to the right medial ankle. Positive for ulceration to left leg and foot. All other systems, no complaints according to the patient. PHYSICAL EXAMINATION: VITAL SIGNS: Stable. GENERAL: The patient is awake, alert, and oriented to person, place, and time. The patient is in no acute distress. HEENT: Normocephalic and atraumatic. CARDIOVASCULAR: Regular rate and rhythm. EXTREMITIES: Bilateral +1 pitting edema to the lower extremities. Pedal pulses, dorsalis pedis palpable 1/4 to the left lower extremity and 0/4 to the right lower extremity. Posterior tibial pulses nonpalpable bilaterally. LUNGS: No respiratory effort noted. INTEGUMENTARY: Left lateral proximal leg has a 2.7 x 2.2 x 0.3 cm venous stasis ulceration that is 50% granular and 50% fibrotic without any drainage or signs of infection. Left foot has a 1.1 x 0.7 x 0.3 cm ulceration over the first metatarsophalangeal joint and a 1.7 x 0.7 x 0.3 cm ulceration over the first metatarsal head. Both left foot wounds have eschar covering most of the wound bed. There is no drainage or signs of infection noted. There is 1.2 x 1.2 x 0.3 cm ulceration with eschar at the right medial malleolus with serous drainage. There is no purulence or malodor. Periwound has erythema extending circumferentially around the right ankle joints and extending distally approximately 6 cm and proximally about 4 to 5 cm. Surrounding periwound skin is forming small blisters. NEUROLOGIC: The patient has decreased sensation to the bilateral lower extremities and diminished protective threshold. Decreased vibratory sensation. MUSCULOSKELETAL: Positive for pain to palpation to the right medial ankle. Muscle strength graded 5/5 for all major muscle groups of the bilateral lower extremities. There is no pain, limitation, or crepitus with range of motion of all pedal joints bilaterally. RADIOLOGY: Bone scan pending for next Sunday. X-rays performed in the physician's office on Sunday showed no cortical erosions, normal bone density, soft tissue swelling of the right ankle without any emphysema noted. The patient is unable to undergo MRI due to his defibrillator. LABORATORY DATA: CBC shows slight anemia and normal white count. CRP is pending as well as ESR. ASSESSMENT: 1. Right lower extremity cellulitis. 2. Right lower extremity venous statis, chronic nonhealing ulceration extending to subcutaneous tissue. 3. Congestive heart failure. 4. Chronic nonhealing ulceration to the left first metatarsophalangeal joint extending to the level of subcutaneous tissue. 5. Left foot ulceration extending to the level of subcutaneous tissue, chronic, nonhealing. 6. Left leg venous stasis ulceration extending to the level of subcutaneous tissue. 7. Chronic venous insufficiency secondary to congestive heart failure. 8. Peripheral arterial disease, likely. 9. Osteomyelitis, right ankle, possible, needs to be ruled out. PLAN: The patient was seen and evaluated. The case was discussed with Dr. Shook. The patient was scheduled to undergo right lower extremity angiogram Sunday morning by Dr. Checo Andrew, who has been consulted. Dr. Gao was then consulted for Infectious Disease. In the meantime, continue with IV antibiotics. Wound culture was not obtained prior to the start of antibiotics. At this time, the patient's pain is well controlled on the current pain regimen. Arterial dopplers of the bilateral lower extremities with RADHA and TBI are ordered, until results are reviewed, compression will be held as well as any debridement of the patient's wounds. ESR and CRP are still pending and will be viewed to clinically correlate with the physical exam findings as well as the findings of the 3-phase bone scan on Sunday to rule out osteomyelitis of the right ankle. There is no concern of right ankle joint sepsis at this time. Today, the wound care was performed at bedside. Santyl ointment was placed on the left hallux ulceration, left foot ulceration, and left leg ulceration. All 3 ulcerations were dressed with moist gauze soaked in saline and dry sterile dressing. The right medial ankle ulceration was dressed with a Betadine wet-to-dry dressing loosely applied. Podiatry will continue with daily dressing changes and we will continue to follow the patient. Thank you very much for the consultation. I can be reached at [phone]. JEFF Marrero/MARLYS /[id number] MTDD
--- NOTE | 2018-11-17 06:26 | NUR ---
WEB COORDINATOR APPRAISER REAL ESTATE NOTIFIED OF PATIENT EPISODES OF SINUS BRADYCARDIA WITH PVCS WHEN ASLEEP. PATIENT IS ASYMPTOMATIC.
--- NOTE | 2018-11-17 07:00 | NUR ---
RECEIVED BEDSIDE REPORT FROM ORGANIC CHEMISTRY TEACHER RN. PT BLOOD SUGAR IS LOW. PT IS ASYMPTOMATIC.ORANGE JUICE GIVEN. PT DENIED NEEDS AT THIS TIME.
[2018-11-17 07:05] LABS: BASOPHILS # (AUTO) 0.1 (0.0-0.1); BASOPHILS % 0.8 % (0.0-1.0); EOSINOPHILS # (AUTO) 0.1 (0.0-0.4); EOSINOPHILS % 0.7 % (0.0-6.0); HEMATOCRIT 41.3 % (38.2-49.6); HEMOGLOBIN 13.1 g/dL (14.0-18.0); LYMPHOCYTES # (AUTO) 1.9 (1.0-3.2); LYMPHOCYTES % 26.1 % (18.0-39.1); MEAN CORPUSCULAR HEMOGLOBIN 29.1 pg (28-32); MEAN CORPUSCULAR HGB CONC 31.7 g/dL (31-35); MEAN CORPUSCULAR VOLUME 91.8 fL (81-99); MONOCYTES # (AUTO) 0.6 (0.2-0.8); MONOCYTES % 8.9 % (4.4-11.3); NEUTROPHILS # (AUTO) 4.5 (2.1-6.9); NEUTROPHILS % 63.1 % (38.7-80.0); PLATELET COUNT 260 x10e3/uL (140-360); RED CELL DISTRIBUTION WIDTH 18.6 % (11.7-14.4)
[2018-11-17 07:25] LABS: ANION GAP 14.9 mmol/L (8-16); BLOOD UREA NITROGEN 30 mg/dL (7-26); BUN/CREATININE RATIO 29 (6-25); CALCIUM 8.9 mg/dL (8.4-10.2); CARBON DIOXIDE 29 mmol/L (22-29); CHLORIDE 97 mmol/L (98-107); CREATININE, SERUM 1.05 mg/dL (0.72-1.25); EST GLOMERULAR FILTRATION RATE > 60 ML/MIN (60-); GLUCOSE 61 mg/dL (74-118); POTASSIUM 3.9 mmol/L (3.5-5.1); SODIUM 137 mmol/L (136-145)
[2018-11-17] MEDS: INSULIN REGULAR, HUMAN 100 UNIT/1 ML 3ML VIAL SQ SCH ×4 (07:30→20:41)
[2018-11-17] MEDS ORDERED: METFORMIN HCL 500 MG TAB PO SCH (08:00)
[2018-11-17] MEDS: SPIRONOLACTONE 25 MG TAB PO SCH (08:01)
[2018-11-17] MEDS: CARVEDILOL 3.125 MG TAB PO SCH ×2 (08:02→16:12)
[2018-11-17] MEDS: CAPTOPRIL 25 MG TAB PO SCH ×3 (08:02→20:41)
[2018-11-17] MEDS: TORSEMIDE 10 MG TAB PO SCH (08:02)
[2018-11-17] MEDS: COLLAGENASE 5 GM TUBE TOP SCH (08:31)
[2018-11-17] MEDS ORDERED: ASPIRIN 81 MG ENTERIC COATED PO SCH (09:00)
[2018-11-17] MEDS ORDERED: NON-FORMULARY MEDICATION (Atorvastatin Calcium 40 MG) PO SCH (09:00)
[2018-11-17] MEDS ORDERED: NON-FORMULARY MEDICATION (Torsemide 20 MG) PO SCH (09:00)
--- NOTE | 2018-11-17 10:00 | NUR ---
WOUND CULTURE DONE. WOUND DRESSING CHANGE COMPLETED BILATERALLY WITH SANTYL AND BETADINE. PT IS LYING ON SEMI ESTRADA POSITION. PT DENIED NEEDS AT THIS TIME. CALL ZIEGLER WITHIN REACH.
--- NOTE | 2018-11-17 14:30 | NUR ---
Visit made by the Spiritual Care Department Pastoral Visitor, Zafar Mcmahon. PV provided pastoral presence, hospitality, and supportive listening. Pastoral Visitor informed pt/family of the scope of [employer] and availability. SYD GARCIA Fruit Rancher Spiritual Care Department O: [phone] Pager: [phone] ([phone] number calling from)
[2018-11-17] MEDS: CEFEPIME 1GM/NS 0.9% 50 ML 50 ML IV SCH ×2 (14:38→22:00)
--- NOTE | 2018-11-17 19:05 | NUR ---
BEDSIDE REPORT GIVEN TO ONCOMING CD MANUFACTURING SUPERVISOR RN
--- NOTE | 2018-11-17 20:01 | NUR ---
NOTED LOW BLOOD SUGAR. PATIENT IS ASYMPTOMATIC AND GIVEN SNACKS AND JUICE.
--- NOTE | 2018-11-17 20:14 | Consultation ---
DATE OF CONSULTATION: 11/17/2018 Infectious Disease Consult Note This consultation is done on behalf of Dr. Gao, Infectious Disease physician. REASON FOR CONSULTATION: Bilateral lower extremity venous stasis ulcerations in a patient with type 2 diabetes mellitus, CHF, and with an external defibrillator, evaluation and recommendations. CHIEF COMPLAINT: Right ankle and left great toe wounds for 3-4 days. HISTORY OF PRESENT ILLNESS: The patient is a 58-year-old very pleasant gentleman with a past medical history significant for diabetes mellitus type 2, congestive cardiac failure, history of lower extremity edema with venous stasis, history of defibrillator placement, admitted to [facility] on 11/16/2018, with right lower extremity medial malleolus wound and left great toe wound. The patient reports that due to his CHF, he has developed blisters and increasing swelling of lower extremities, and a week ago, he developed a wound on the right ankle medial malleolus, so he is admitted to the hospital. Due to his defibrillator, the MRI could not be done. Bone scan is scheduled, it is pending. He was started on vancomycin and cefepime and Infectious Disease consulted. At the time of my consultation, the patient is lying in bed, reports mild discomfort of the lower extremity wounds. Denies any injury. Denies soaking in the water. Denies taking any antibiotics as an outpatient. PAST MEDICAL HISTORY: Diabetes mellitus, congestive cardiac failure with an external defibrillator, renal insufficiency. PAST SURGICAL HISTORY: None. SOCIAL HISTORY: Former smoker. Quit 1 year ago. No drug use. Social alcohol use. FAMILY HISTORY: Diabetes and heart disease. ALLERGIES: NO KNOWN DRUG ALLERGIES. MEDICATIONS: Vancomycin 1 g IV q.24, cefepime 1 g IV q.24 for the last 24 hours. PHYSICAL EXAMINATION: GENERAL: The patient is moderately built, very pleasant, middle-aged gentleman. VITAL SIGNS: T-max of 96.4, heart rate 58, respiratory rate 19, blood pressure 130/71. HEENT: Head, atraumatic and normocephalic. Pupils equal, round, and reactive to light. Face is symmetrical. Conjunctivae nonicteric. Oropharynx is moist. NECK: Supple. LUNGS: Clear to auscultation. HEART: Regular rate and rhythm. ABDOMEN: Good bowel sounds. EXTREMITIES: Right foot medial malleolus, 1 cm x 1 cm full-thickness skin loss ulcer is present. Right foot is swollen, slightly erythematous. Dorsalis pedis, posterior tibialis pulses are palpable. Protective sensation is slightly decreased in left foot great toe first metatarsal area. Another full-thickness skin loss ulcer is present with minimal drainage. LABORATORY DATA: Labs, sodium 137, potassium 3.9, chloride 97, bicarb 29, BUN of 30, creatinine 1, and BNP is 4989 on admission. Serum WBC count of 10.38 on admission, decreased to 7; hemoglobin 13; hematocrit 41; platelets 260. Sed rate is 24. C-reactive protein is pending, and x-ray of the foot is pending. Ultrasound of the lower extremity is pending. ASSESSMENT AND PLAN: A 58-year-old with diabetes mellitus type 2, hypertension, hyperlipidemia, and congestive heart failure with bilateral chronic venous stasis and chronic lower extremity edema with right lower extremity, right ankle wound, and left foot wounds with cellulitis. Recommend to continue vancomycin, change it to 1 g q.12, obtain vancomycin trough at the full dose, keep the trough less than 20. Follow CBC, CMP. Also change cefepime to 1 g IV q.8 hours to cover for Pseudomonas and Enterococcus faecalis, Klebsiella empirically, and obtain arterial Dopplers, obtain 3-phase bone scan of the right foot. Based on the culture results and radiological data, duration of antibiotic therapy will be determined. I have discussed all the side effects of the medication to the patient. Thank you very much. We will follow. Dr. Gao will be resuming the care of the patient tomorrow. MD JESSICA Eaton/MARLYS /[id number]
[2018-11-17] MEDS: VANCOMYCIN 1GM/NS 250 ML 250 ML IV SCH (20:40)
[2018-11-17] MEDS: ATORVASTATIN 40 MG TAB PO SCH (20:41)
[2018-11-17] MEDS: FAMOTIDINE 20 MG TAB PO SCH (20:41)
[2018-11-18] VITALS (7 sets, daily range): BP systolic 110–147; BP diastolic 59–93
[2018-11-18] MEDS: CEFEPIME 1GM/NS 0.9% 50 ML 50 ML IV SCH ×3 (05:03→23:00)
[2018-11-18] MEDS: METOCLOPRAMIDE HCL 10 MG/2ML VIAL IV SCH (05:03)
[2018-11-18 05:11] LABS: BASOPHILS # (AUTO) 0.1 (0.0-0.1); BASOPHILS % 0.8 % (0.0-1.0); EOSINOPHILS # (AUTO) 0.2 (0.0-0.4); EOSINOPHILS % 2.2 % (0.0-6.0); HEMOGLOBIN 13.8 g/dL (14.0-18.0); LYMPHOCYTES # (AUTO) 1.5 (1.0-3.2); LYMPHOCYTES % 17.5 % (18.0-39.1); MEAN CORPUSCULAR HEMOGLOBIN 29.2 pg (28-32); MEAN CORPUSCULAR HGB CONC 32.1 g/dL (31-35); MEAN CORPUSCULAR VOLUME 90.9 fL (81-99); MONOCYTES # (AUTO) 0.8 (0.2-0.8); MONOCYTES % 9.4 % (4.4-11.3); NEUTROPHILS # (AUTO) 6.1 (2.1-6.9); NEUTROPHILS % 69.5 % (38.7-80.0); PLATELET COUNT 300 x10e3/uL (140-360); RED BLOOD COUNT 4.73 x10e6/uL (4.3-5.7); RED CELL DISTRIBUTION WIDTH 18.6 % (11.7-14.4)
[2018-11-18 05:27] LABS: ANION GAP 16.3 mmol/L (8-16); CALCIUM 9.4 mg/dL (8.4-10.2); CREATININE, SERUM 1.27 mg/dL (0.72-1.25); MAGNESIUM 1.4 MG/DL (1.3-2.1); POTASSIUM 4.3 mmol/L (3.5-5.1)
[2018-11-18] MEDS: INSULIN REGULAR, HUMAN 100 UNIT/1 ML 3ML VIAL SQ SCH ×4 (07:30→21:00)
[2018-11-18] MEDS: SPIRONOLACTONE 25 MG TAB PO SCH (08:36)
[2018-11-18] MEDS: VANCOMYCIN 1GM/NS 250 ML 250 ML IV SCH ×2 (08:36→21:34)
[2018-11-18] MEDS: CAPTOPRIL 25 MG TAB PO SCH ×3 (08:36→21:36)
[2018-11-18] MEDS: CARVEDILOL 3.125 MG TAB PO SCH ×2 (08:37→17:02)
[2018-11-18] MEDS: TORSEMIDE 10 MG TAB PO SCH (09:00)
[2018-11-18] MEDS: COLLAGENASE 5 GM TUBE TOP SCH (09:00)
[2018-11-18] MEDS ORDERED: HYDRALAZINE HCL 20 MG/ML VIAL IV PRN (10:15)
[2018-11-18] MEDS ORDERED: ACETAMINOPHEN 325 MG TAB PO PRN (10:15)
[2018-11-18] MEDS ORDERED: ONDANSETRON HCL INJ 2MG/ML 2ML 2 MG/ML VIAL IV PRN (10:15)
[2018-11-18 16:19] LABS: EOSINOPHILS % (MANUAL) 2 % (0-7); LYMPHOCYTES % (MANUAL) 15 % (19-48); MONOCYTES % (MANUAL) 3 % (3.4-9.0); NEUTROPHILS % (MANUAL) 77 % (40-74); PLATELET ESTIMATE ADEQUATE; PLATELET MORPHOLOGY COMMENT NORMAL; RBC MORPHOLOGY COMMENT NORMAL
[2018-11-18] MEDS: FAMOTIDINE 20 MG TAB PO SCH (16:21)
[2018-11-18] MEDS: MEGESTROL ACETATE 40 MG TAB PO SCH (17:01)
--- NOTE | 2018-11-18 17:17 | NUR ---
WOUND CARE CONSULTATION: THIS IS A 58 YEAR OLD MALE PATIENT ADMITTED TO [facility] FOR CELLULITIS. PATIENT HAS A HISTORY OF DM TYPE 2 AND CHF. HEAD TO TOE SKIN ASSESSMENT PERFORMED. PATIENT HAS A LEFT LATERAL LEG VENOUS ULCER MEASURING 2.7X2.2X0.2CM, WITH 40% FIBRIN AND 60% PINK GRANULATION NOTED TO WOUND BED. PATIENT HAS A CHANEL 2 DIABETIC ULCER TO THE FIRST LEFT METATARSAL DORSAL SURFACE MEASURING 1.1X0.7X0.2CM, WITH 100% ESCHAR NOTED TO WOUND BED. PATIENT HAS A LEFT MET HEAD CHANEL 2 DIABETIC ULCER MEASURING 1.6X0.8X0.2CM, WITH 100% ESCHAR NOTED TO WOUND BED. PATIENT HAS A RIGHT MEDIAL ANKLE VENOUS ULCER MEASURING 1X1.2X0.2CM, WITH STABLE ESCHAR AND 60% PINK GRANULATION NOTED TO WOUND BED. PATIENT HAS A RIGHT KNEE STAGE 2 PRESSURE ULCER MEASURING 0.5X0.7X0.2CM, 10% FIBRIN AND 90% PINK GRANULATION NOTED TO WOUND BED. PATIENT'S PULSES TO BLE ARE WEAK BUT PALPABLE. PATIENT INTENDS TO FOLLOW UP WITH DR. MALDONADO IN THE OUT PATIENT [facility] THIS SUNDAY, PENDING DISCHARGE. LABS: WBC8.70 ALB3.4 [id number] ESR29 CRP1.7 WOUND CULTURE PENDING. RECOMMENDATION: -APPLY ALTERNATING PRESSURE RELIEF MATTRESS. -APPLY BILATERAL HEEL PROTECTORS WITH PILLOW SUSPENSION. -ENCOURAGE PATIENT TO TURN EVERY 2 HOURS AND PRN. -CONTINUE DAILY DRESSING CHANGE ORDERS THAT ARE IN PLACE PER DR. MALDONADO. -NURSING TO APPLY FIBRACOL TO RIGHT KNEE STAGE 2 PRESSURE ULCER, COVER WITH NS MOISTENED GAUZE AND SECURE WITH TAPE; CHANGE DAILY AND PRN. THANK YOU FOR THIS WOUND CARE CONSULTATION. Addendum: 11/18/18 at 1737 by Gloria Vinson RN Amended: Links added.
--- NOTE | 2018-11-18 17:44 | Diagnostic Imaging Report ---
Bone Scan, three-phase - feet and ankles Reason for exam: Chronic cellulitis with blisters bilateral lower legs. Chronic ulcers right medial malleolus and left great toe. Venous stasis; CHF Radiopharmaceutical: Tc-99m MDP 25.0 mCi Comparison: None available Following intravenous administration of the radiopharmaceutical, dynamic flow and immediate blood pool images of the feet and ankles followed by 3-hour delayed spot images were obtained. Flow and blood pool images show symmetric distribution of tracer activity to the feet and ankles with focal increased tracer activity superficially along the right ankle medially. Delayed images show very mildly increased tracer superficially along the right ankle medially with focal increased tracer activity in adjacent bone. Distribution of tracer activity is otherwise unremarkable throughout the feet and ankles. Specifically, no abnormal accumulation of tracer is seen in the left great toe on the delayed images. Impression: Soft tissue inflammation over the right medial malleolus without evidence of adjacent osteomyelitis in the tibia. No scan evidence of osteomyelitis in the toes, specifically, none in the left great toe. Signed by: Dr. Sanjuana Bateman M.D. on 11/18/2018 5:40 PM
--- NOTE | 2018-11-18 19:15 | NUR ---
Patient received lying in bed. AAO x 3. Patient had no complaints of pain. No signs of respiratory distress. Fall precautions implemented. Bed locked and in lowest position. Bed rails up x 2. Patient instructed to call for assistance when needed. Call light within reach.
--- NOTE | 2018-11-18 20:06 | NUR ---
Nutrition Screen Note RD Recommendation for Physician: -Continue current diet as ordered -RD provided diet education on 11/18. Plan of Care: RD following, monitoring for tolerance and adequacy, diet education Nutrition reason for involvement: Nutrition Risk Trigger MST Primary Diagnose(s): lower extremity cellulitis and ulceration PMH: DM, CHF Ht: 69in Wt: 175lb BMI: 25.8kg/m2 IBW: 160lb RD Assessment: (11/18) Chart reviewed. Labs and meds reviewed. 58yo M, who was admitted for RLE cellulitis. 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 Pt denied chewing/swallowing problems and nausea/vomiting. Pt was dx with DM a year ago. Per pt, HbA1c was ~7.4% the last time he checked. Pt made effort to control his BG level with diet, med and physical activity. Pt requested more info on diabetic diet. RD discussed diet with pt for 30 minutes. Will continue to monitor and follow. Current Diet: renal diabetic diet Malnutrition Evaluation (11/18) The patient does not meet criteria for a specified degree of malnutrition at this time. Will re-evaluate at follow-up as appropriate. Diet Education Needs Assessment: Diet education indicated, pt was agreeable with plan. Learner(s): pt Time spent: 30mins Barriers: No barriers identified. Cultural/Language Modifications: No cultural/language modifications noted. Pt speaks Cook Islander. Readiness: Pt eager to learn. Method: Handout, explanation Topics: Carbohydrate exchanges, Carbohydrate counting handouts, Reading the nutrition label, meal planning tips, exercise tips, servings/portion sizes Understanding/Compliance: Expect good understanding/compliance from pt. Will benefit from reinforcement. All questions have been answered. Nutrition Care Level: low Signed: Corazon Harley, MS, RD, LD
[2018-11-18] MEDS: ATORVASTATIN 40 MG TAB PO SCH (21:34)
[2018-11-19 00:25] VITALS: BP 116/74
[2018-11-19 03:26] VITALS: BP 116/74
[2018-11-19 04:00] VITALS: BP 125/60
[2018-11-19] MEDS: CEFEPIME 1GM/NS 0.9% 50 ML 50 ML IV SCH (05:28)
--- NOTE | 2018-11-19 07:11 | NUR ---
pt alert resp even and unlabored at this time no distress noted pt has no c/o pain when asked, pt able to make needs known, call light in reach.
[2018-11-19] MEDS: INSULIN REGULAR, HUMAN 100 UNIT/1 ML 3ML VIAL SQ SCH (07:30)
[2018-11-19 07:35] VITALS: BP 129/80
[2018-11-19 07:43] VITALS: BP 129/80
[2018-11-19 08:21] LABS: BASOPHILS # (AUTO) 0.1 (0.0-0.1); BASOPHILS % 0.6 % (0.0-1.0); EOSINOPHILS # (AUTO) 0.2 (0.0-0.4); EOSINOPHILS % 2.5 % (0.0-6.0); HEMATOCRIT 41.1 % (38.2-49.6); HEMOGLOBIN 13.3 g/dL (14.0-18.0); LYMPHOCYTES # (AUTO) 1.1 (1.0-3.2); LYMPHOCYTES % 13.4 % (18.0-39.1); MEAN CORPUSCULAR HEMOGLOBIN 29.6 pg (28-32); MEAN CORPUSCULAR HGB CONC 32.4 g/dL (31-35); MEAN CORPUSCULAR VOLUME 91.5 fL (81-99); MONOCYTES # (AUTO) 1.3 (0.2-0.8); MONOCYTES % 16.1 % (4.4-11.3); NEUTROPHILS # (AUTO) 5.4 (2.1-6.9); NEUTROPHILS % 67.2 % (38.7-80.0); PLATELET COUNT 273 x10e3/uL (140-360); RED BLOOD COUNT 4.49 x10e6/uL (4.3-5.7); RED CELL DISTRIBUTION WIDTH 18.5 % (11.7-14.4)
[2018-11-19 08:40] LABS: ANION GAP 13.4 mmol/L (8-16); CALCIUM 9.2 mg/dL (8.4-10.2); CREATININE, SERUM 1.26 mg/dL (0.72-1.25); MAGNESIUM 1.2 MG/DL (1.3-2.1); POTASSIUM 3.4 mmol/L (3.5-5.1)
[2018-11-19] MEDS: TORSEMIDE 10 MG TAB PO SCH (09:39)
[2018-11-19] MEDS: MEGESTROL ACETATE 40 MG TAB PO SCH (09:39)
[2018-11-19] MEDS: FAMOTIDINE 20 MG TAB PO SCH (09:39)
[2018-11-19] MEDS: SPIRONOLACTONE 25 MG TAB PO SCH (09:39)
[2018-11-19] MEDS: CARVEDILOL 3.125 MG TAB PO SCH (09:39)
[2018-11-19] MEDS: CAPTOPRIL 25 MG TAB PO SCH (09:39)
[2018-11-19] MEDS: COLLAGENASE 5 GM TUBE TOP SCH (09:40)
[2018-11-19] MEDS ORDERED: POTASSIUM CHLORIDE 20 MEQ TAB CR PO STA (10:43)
[2018-11-19] MEDS ORDERED: MEGESTROL ACETA40 MG PO (10:56)
[2018-11-19 12:06] VITALS: BP 118/77
--- NOTE | 2018-11-19 20:39 | Discharge Summary ---
ADMISSION DIAGNOSES: Bilateral lower extremity wounds, cellulitis, venous stasis, hypertension, hyperlipidemia, type 2 diabetes, acute kidney injury versus chronic kidney disease, congestive heart failure. DISCHARGE DIAGNOSES: Bilateral lower extremity wounds, cellulitis, venous stasis, hypertension, hyperlipidemia, type 2 diabetes, acute kidney injury versus chronic kidney disease, congestive heart failure, chronic systolic congestive heart failure, acute kidney injury on chronic kidney disease 3, and peripheral arterial disease with right ankle ulcer. MEDICAL HISTORY: The patient is color blind. History of hypertension, hyperlipidemia, type 2 diabetes, PAD, chronic systolic CHF with LifeVest use, HUA, CKD 3. SURGICAL HISTORY: None. FAMILY HISTORY: The patient's dad has diabetes. The patient's mom has CHF. The patient's grandma has cancer. The patient's dad had a bypass. SOCIAL HISTORY: Noncontributory. The patient admits to quitting smoking about 6 months ago. HOSPITAL COURSE: A 58-year-old male complains of left foot wounds at the base of the great toe that began as a blister about 7 or 8 weeks ago. He denies drainage and fever. He says he used Vaseline and Gold Ann with no improvement. He also complains of a right medial ankle wound that began as a blister about 1 week ago. He is color blind and does not know when the erythema began. He also has a leg perry blister that popped. He had an appointment with Dr. Andrew for revascularization per his Cardiology and Podiatry recommendation. On admission, the patient was started on vancomycin and cefepime. Arterial Doppler was ordered. Bone scan was ordered. Cardiology, Infectious Disease, and CV Surgery were all consulted. The wound culture was not obtained in the ER. It was not obtained once the patient came to the floor. The wound culture was obtained after the dressing had already been changed and the wound had been cleaned by Podiatry. The wound culture came back positive only for Staph. The patient's echo showed an EF of less than 20%. He does have a LifeVest on currently. Bilateral arterial Dopplers showed evidence of arterial disease without significant stenosis. The bone scan was negative for osteomyelitis. Blood cultures were negative. The patient will be discharged home with Keflex per ID recommendation, and he will follow up with Dr. Cuellar, his cooperative education director on Sunday and follow up with Dr. Hernandez, his division road supervisor on Sunday. He will also follow up with primary care in 1-2 weeks. The patient and family understand discharge instructions and agrees to plan. Vital signs stable. The patient is afebrile. Dictated by Jessica Obando NP MD GABE Smart/MARLYS /[id number]
== END 2018-11-19 15:56 | disposition home or self-care (01) | DRG 638 ==
LOC: ER 18:55 → ERHOLD 11-16 01:50 → OBSVTOIN 11-16 10:30 → MED/SURG2 11-16 13:18
PROVIDERS: ADMIT Internal Medicine; ATTEND Internal Medicine
DX: E11.621 Type 2 diabetes mellitus with foot ulcer (principal); L03.115 Cellulitis of right lower limb; I13.0 Hypertensive heart and chronic kidney disease with heart failure and stage 1 through stage 4 chronic kidney disease, or unspecified chronic kidney disease; L97.319 Non-pressure chronic ulcer of right ankle with unspecified severity; I50.22 Chronic systolic (congestive) heart failure; N17.9 Acute kidney failure, unspecified; N18.3 Chronic kidney disease, stage 3 (moderate); S90.412A Abrasion, left great toe, initial encounter; I25.10 Atherosclerotic heart disease of native coronary artery without angina pectoris; E78.5 Hyperlipidemia, unspecified; H53.50 Unspecified color vision deficiencies; Z83.3 Family history of diabetes mellitus; Z82.49 Family history of ischemic heart disease and other diseases of the circulatory system; Z80.9 Family history of malignant neoplasm, unspecified; Z87.891 Personal history of nicotine dependence; E11.22 Type 2 diabetes mellitus with diabetic chronic kidney disease; Z79.84 Long term (current) use of oral hypoglycemic drugs; Z79.82 Long term (current) use of aspirin; L97.529 Non-pressure chronic ulcer of other part of left foot with unspecified severity; I87.2 Venous insufficiency (chronic) (peripheral); Z95.818 Presence of other cardiac implants and grafts; E11.51 Type 2 diabetes mellitus with diabetic peripheral angiopathy without gangrene; B95.61 Methicillin susceptible Staphylococcus aureus infection as the cause of diseases classified elsewhere
CPT/HCPCS: 36415; 78315; 80048; 80053; 80202; 82948; 83735; 83880; 85025; 85651; 86140; 87040; 87071; 87186; 87205; 93306; 93925; 96372; 99284; A9503; J0692; J2765; J3370; J7050